=== PATIENT | female | born 1955 | race Caucasian/White ===

== ENCOUNTER 2020-12-01 11:01 | Outpatient (REF) | payer BC, SELFPAY ==
[2020-12-01 11:30] LABS: MANUAL DIFF FLAG NO
[2020-12-01 11:47] LABS: Basophils Percent Auto 0.5 % (0-2); Eosinophils Absolute Auto 0.1 X10*3/uL (0.0-0.4); Eosinophils Percent Auto 1.4 % (0-4); Hematocrit 40.4 % (37-47); Hemoglobin 12.7 g/dl (12.0-16.0); Imm Gran Abs Auto 0.02 X10*3/uL (0.00-0.03); Imm Gran Pct Auto 0.3 % (0.0-0.4); Lymphocytes Absolute Auto 2.7 X10*3/uL (1.2-4.9); Lymphocytes Percent Auto 35.2 % (20-40); Mean Corpuscular HGB Conc 31.4 g/dl (31.0-35.0); Mean Corpuscular Hemoglobin 28.4 pg (27.0-33.0); Mean Corpuscular Volume 90.4 fL (80-98); Mean Platelet Volume 10.3 fL (9.4-12.3); Monocytes Absolute Auto 0.5 X10*3/uL (0.1-1.2); Neutrophils Absolute Auto 4.4 X10*3/uL (2.0-8.3); Neutrophils Percent Auto 56.6 % (45-73); Platelet Count 252 X10*3/uL (160-400); Red Blood Count 4.47 X10*6/uL (4.20-5.50); Red Cell Distribution Width 12.7 % (11.0-16.0); White Blood Count 7.7 X10*3/uL (4.8-10.8)
[2020-12-01 12:17] LABS: Glucose Urine UA NEG (NEG); Leukocyte Esterase Urine NEG (NEG); Nitrite Urine NEG (NEG); PH 5.5 (5.0-8.0); Specific Gravity - Urine >= 1.030 (1.005-1.025); Urine Blood NEG (NEG); Urine Ketones NEG (NEG); Urine Protein NEG (NEG-TRACE)
[2020-12-01 12:18] LABS: Alanine Aminotransferase 19 U/L (0-31); Alkaline Phosphatase 67 U/L (39-117); Anion Gap 15 (12-20); Aspartate Amino Transferase 15 U/L (5-31); Bilirubin Total 0.3 mg/dL (0.0-1.0); Blood Urea Nitrogen 20 mg/dL (9-16); Calcium 8.8 mg/dL (8.4-10.2); Carbon Dioxide 24 mmol/L (22-29); Chloride 108 mmol/L (96-108); Cholesterol 234 mg/dL; Estimated Glomerular Filt Rate > 60; Glucose Fasting 99 mg/dL (60-99); HDL Cholesterol 50 mg/dL; LDL Cholesterol Calculated 144 mg/dl; Potassium 4.3 mmol/L (3.3-5.1); Sodium 143 mmol/L (135-145); Total Protein 6.8 g/dL (6.5-8.0); Triglycerides 204 mg/dL
[2020-12-01 12:22] LABS: Appearance Urine HAZY; Color Urine YELLOW
== END 2020-12-01 11:02 | disposition home or self-care (01) ==
LOC: HO.LNP 11:01
PROVIDERS: PCP Internal Medicine; Visit Provider Internal Medicine
DX: Z00.00 Encounter for general adult medical examination without abnormal findings (principal); I10 Essential (primary) hypertension
CPT/HCPCS: 80053; 80061; 81003; 85025

== ENCOUNTER 2021-04-10 08:21 | Day surgery (SDC) | payer BC, OTHER, MEDICARE, SELFPAY ==
[2021-04-02 13:46] VITALS: BMI 27.8
--- NOTE | 2021-04-09 09:15 | HO.ANESPROP2 ---
Documented by User: Ashley Silverio NP 04/09/21 09:15 HPI - Anesthesia Eval Consult details Narrative: 66yo F for Colonoscopy [facility] Past Medical History Medical History Arthritis HTN (hypertension) Psoriasis Sciatica Urinary incontinence Family History Family History (Updated 04/02/21 @ 13:52 by Ewelina Mancia, JEFERSON) Father Heart disease Mother Heart disease Pacemaker Surgical History Surgical History History of appendectomy History of back surgery History of cervical spinal surgery History of colonoscopy History of hysterectomy Social History Social History Patient Tobacco Use Status: Never used Tobacco Second Hand Smoke Exposure: No Use of substances other than those prescribed or required for medical reasons: No Are you DNR?: No Advance Directives: No Advance Directives Information Provided: No Advance Directives on File: No Meds Allergies Allergy/AdvReac Type Severity Reaction Status Date / Time Penicillins Allergy Intermediate RASH Verified 04/10/21 09:19 oxycodone [From OXYCONTIN] Allergy Mild RASH Verified 04/10/21 09:19 penicillin V Allergy Unknown Rash Verified 04/10/21 09:19 Home Medications Medication Instructions Recorded Confirmed Last Taken Type lisinopril 10 1 tab PO DAILY 04/02/21 04/02/21 Unknown History mg-hydrochlorothiazide 12.5 mg tablet Exam Exam Date and Time: April 09, 2021 0915 Height,Weight and Vital Signs: Height 5 ft 3 in Weight 71.214 kg Assessment and Plan Assessment Anesthesia Assessment: Chart Reviewed Documented by User: Hali Damon MD 04/10/21 09:34 [facility] Past Medical History Medical History Arthritis HTN (hypertension) Psoriasis Sciatica Urinary incontinence Family History Family History (Updated 04/02/21 @ 13:52 by Ewelina Mancia RN) Father Heart disease Mother Heart disease Pacemaker Family history of problems with anesthesia: No Surgical History Surgical History History of appendectomy History of back surgery History of cervical spinal surgery History of colonoscopy History of hysterectomy History of Problems with Anesthesia: No Social History Social History Patient Tobacco Use Status: Never used Tobacco Second Hand Smoke Exposure: No Use of substances other than those prescribed or required for medical reasons: No Are you DNR?: No Advance Directives: No Advance Directives Information Provided: No Advance Directives on File: No Meds Allergies Allergy/AdvReac Type Severity Reaction Status Date / Time Penicillins Allergy Intermediate RASH Verified 04/10/21 09:19 oxycodone [From OXYCONTIN] Allergy Mild RASH Verified 04/10/21 09:19 penicillin V Allergy Unknown Rash Verified 04/10/21 09:19 Home Medications Medication Instructions Recorded Confirmed Last Taken Type lisinopril 10 1 tab PO DAILY 04/02/21 04/02/21 Unknown History mg-hydrochlorothiazide 12.5 mg tablet Exam Airway Mallampati Class: II TM Dist: >3cm Neck ROM: Full Heart: rrr Lungs: cta Assessment and Plan Assessment Anesthesia Assessment: Anesthesia Plan Discussed and Chart Reviewed Final Anesthetic Review Family History of Problems with Anesthesia: No History of Problems with Anesthesia: No NPO: Yes ASA Class: II Final Preanesthetic Review: No Changes in Pt Med Stat and Consent Obtained/Reviewed Patient Risk: Intermediate Procedure Risk: Intermediate Anesthetic Plan Anesthetic Plan: MAC: Disposition: Standard PACU
[2021-04-10 09:21] VITALS: BP 131/78; PULSE 67; RESP 16; TEMP 36.4; O2SAT 97
[2021-04-10] MEDS: Lactated Ringers 1,000 ML 100 ML IVCONT (09:26)
[2021-04-10 10:30] VITALS: BP 95/57; PULSE 65; RESP 16; TEMP 36.7; O2SAT 95
--- NOTE | 2021-04-10 10:33 | PM.OP ---
Brief Operative Note Date of Service: 04/10/21 Pre-op diagnosis: Screening Post-op diagnosis: other (Colon polyp) Procedure: Colonoscopy to the cecum with bx/removal of polyp Surgeon: Pranay Lutz Anesthesia: MAC Was an Traffic Signal Supervisor Maintenance used for this Procedure?: No Estimated blood loss (mL): 3.0 Pathology: other (A. Cecal polyp) Condition: stable Disposition: PACU
[2021-04-10 10:45] VITALS: BP 127/72; PULSE 63; RESP 16; TEMP 36.1; O2SAT 96
--- NOTE | 2021-04-10 20:25 | OP_ITS ---
SURGEON: Pranay Lutz MD INDICATIONS: The patient presents for evaluation of personal history of tubular adenoma of the colon and need for colorectal cancer screening. Full consent has been obtained from her for this, including risks of bleeding and perforation. PREOPERATIVE DIAGNOSIS: Colorectal cancer screening. POSTOPERATIVE DIAGNOSIS: PROCEDURE PERFORMED: Colonoscopy to the cecum with biopsy and removal of polyp. ESTIMATED BLOOD LOSS: COMPLICATIONS: ANESTHESIA: Monitored anesthesia care. ASSISTANTS: SPECIMENS: POSTOPERATIVE DIAGNOSES: Colorectal cancer screening, small colon polyp, diverticulosis, and internal hemorrhoids. DESCRIPTION OF PROCEDURE: The patient was placed in the left lateral decubitus position. The digital rectal exam revealed no abnormalities. The Olympus video pediatric colonoscope was entered into the rectum and advanced easily to the cecum. Once in the cecum, I did identify normal-appearing cecal pouch with appendiceal orifice other than an approximately 4 mm polyp in the cecum, which was biopsied and completely removed with cold biopsy forceps. The remainder of the cecum and ileocecal valve appeared normal. There was transillumination of light deep in the right lower quadrant. The scope was slowly withdrawn assessing all mucosal surfaces carefully. Preparation was excellent. I did not visualize any other polyps, colitis, nor angiodysplasia. There was a mild amount of sigmoid diverticulosis. In the rectum, scope was retroflexed visualizing small internal hemorrhoids, but no other pathology. The rectal mucosa appeared normal. The scope was straightened out and withdrawn from the patient. She tolerated the procedure well and was returned to recovery area in stable condition. IMPRESSION: 1. Small colon polyp, status post biopsy and removal. 2. Diverticulosis. 3. Internal hemorrhoids. PLAN: The results of the biopsy will be checked. I would recommend a repeat colonoscopy in 5 years for further surveillance. MD GIN Celis/JONATHAN / [phone]
== END 2021-04-10 11:36 | disposition home or self-care (01) ==
PROVIDERS: PCP Internal Medicine; Visit Provider Internal Medicine
PROC: 0DJD8ZZ Inspection of Lower Intestinal Tract, Via Natural or Artificial Opening Endoscopic (ICD-10-PCS; CPT 45378; principal; 2021-04-10 09:40)
DX: Z12.11 Encounter for screening for malignant neoplasm of colon (principal); Z86.010 Personal history of colon polyps; D12.0 Benign neoplasm of cecum; K57.30 Diverticulosis of large intestine without perforation or abscess without bleeding; K64.8 Other hemorrhoids; I10 Essential (primary) hypertension; Z79.899 Other long term (current) drug therapy; Z79.1 Long term (current) use of non-steroidal anti-inflammatories (NSAID); Z88.0 Allergy status to penicillin; Z88.8 Allergy status to other drugs, medicaments and biological substances; F17.210 Nicotine dependence, cigarettes, uncomplicated
CPT/HCPCS: 45380; 88305

== ENCOUNTER 2021-07-31 14:27 | Outpatient (REF) | payer MEDICARE, OTHER, SELFPAY ==
--- NOTE | ~2021-07-31 | MM_ITS ---
EXAMINATION: BONE DENSITOMETRY CLINICAL INDICATION: Menopause. COMPARISON: This is the patient's baseline examination. TECHNIQUE: Using a [employer] DXA System (software version: 13.1) manufactured by [employer], dual-energy x-ray absorptiometry was performed of the left hip and left forearm radius 33%. The images are of good technical quality. Summary results are attached. FINDINGS: LEFT FEMUR, NECK: BMD 0.773 g/cm2, Z-score -0.5, T-score -1.9, osteopenia. LEFT FEMUR, TOTAL: BMD 0.834 g/cm2, Z-score -0.3, T-score -1.4, osteopenia. LEFT FOREARM RADIUS 33%: BMD 0.900 g/cm2, Z-score 1.7, T-score 0.3, normal. IDENTIFIED RISK FACTORS: Early menopause, secondary osteoporosis, hysterectomy. HISTORY OF FRACTURE: None listed. MEDICATIONS: Calcium or multivitamin, ERT/SERMS. MM/XR DEXA axial skeleton IMPRESSION: 1. DIAGNOSIS: Osteopenia based on the lowest T-score value of -1.9 in the femoral neck applying World Health Organization criteria. 2. 10-YEAR FRACTURE RISK PREDICTION, FRAX: Major osteoporotic fracture (clinical spine, forearm, hip or shoulder) 10.4%. Hip fracture 1.5%. 3. Treatment Recommendations: NOF guidelines recommend consideration for treatment in postmenopausal women and men age 50 and older presenting with the following: -A hip or vertebral (clinical or morphometric) fracture. -T-score less than or equal to -2.5 at the femoral neck or spine after appropriate evaluation to exclude secondary causes. -Low bone mass at the hip or spine and a 10-year fracture probability by FRAX of greater than or equal to 3% for hip fracture or greater than or equal to 20% for major osteoporotic fracture based on the [place] adapted WHO algorithm. 4. Other Recommendations: All treatment decisions require clinical judgment and consideration of individual patient factors, including patient preferences, comorbidities, previous drug use, risk factors not captured in the FRAX model (e.g. frailty, falls, vitamin D deficiency, increased bone turnover, interval significant decline in bone density) and possible under or overestimation of fracture risk by FRAX. Additional medical evaluation for secondary cause of low bone mineral density may be appropriate. FUTURE SCAN RECOMMENDATION: People with diagnosed cases of osteoporosis or at high risk for fracture should have regular bone mineral density tests. For patients eligible for Medicare, routine testing is allowed once every 2 years. The testing frequency can be increased to one year for patients who have rapidly progressing disease, those who are receiving or discontinuing medical therapy to restore bone mass, or have additional risk factors.
== END 2021-07-31 14:28 | disposition home or self-care (01) ==
LOC: HO.MAMMO 14:27
PROVIDERS: Visit Provider Internal Medicine
DX: Z13.820 Encounter for screening for osteoporosis (principal); Z78.0 Asymptomatic menopausal state; N95.8 Other specified menopausal and perimenopausal disorders; Z90.710 Acquired absence of both cervix and uterus; Z79.899 Other long term (current) drug therapy
CPT/HCPCS: 77080

== ENCOUNTER 2021-12-21 10:37 | Outpatient (REF) | payer MEDICARE, SELFPAY ==
[2021-12-21 10:41] LABS: MANUAL DIFF FLAG NO
[2021-12-21 11:07] LABS: Basophils Absolute Auto 0.1 X10*3/uL (0.0-0.2); Basophils Percent Auto 0.6 % (0-2); Eosinophils Absolute Auto 0.2 X10*3/uL (0.0-0.4); Eosinophils Percent Auto 2.5 % (0-4); Hemoglobin 13.4 g/dl (12.0-16.0); Imm Gran Abs Auto 0.02 X10*3/uL (0.00-0.03); Imm Gran Pct Auto 0.2 % (0.0-0.4); Lymphocytes Absolute Auto 3.5 X10*3/uL (1.2-4.9); Lymphocytes Percent Auto 40.3 % (20-40); Mean Corpuscular HGB Conc 31.9 g/dl (31.0-35.0); Mean Corpuscular Hemoglobin 28.9 pg (27.0-33.0); Mean Corpuscular Volume 90.5 fL (80.0-98.0); Mean Platelet Volume 9.7 fL (9.4-12.3); Monocytes Absolute Auto 0.5 X10*3/uL (0.1-1.2); Monocytes Percent Auto 5.4 % (2-11); Neutrophils Absolute Auto 4.4 x10*3/uL (2.0-8.3); Platelet Count 383 X10*3/uL (160-400); Red Blood Count 4.64 X10*6/uL (4.20-5.50); Red Cell Distribution Width 13.1 % (11.0-16.0); White Blood Count 8.6 X10*3/uL (4.8-10.8)
[2021-12-21 11:13] LABS: Appearance Urine HAZY; Color Urine YELLOW; Glucose Urine UA NEG (NEG); Leukocyte Esterase Urine NEG (NEG); Nitrite Urine NEG (NEG); PH 5.5 (5.0-8.0); Specific Gravity - Urine >= 1.030 (1.005-1.025); Urine Blood NEG (NEG); Urine Ketones NEG (NEG); Urine Protein NEG (NEG-TRACE)
[2021-12-21 11:24] LABS: Alanine Aminotransferase 21 U/L (0-31); Albumin Level 4.2 g/dL (3.5-5.0); Alkaline Phosphatase 79 U/L (39-117); Anion Gap 11 (12-20); Aspartate Amino Transferase 17 U/L (5-31); Bilirubin Total 0.4 mg/dL (0.0-1.0); Blood Urea Nitrogen 27 mg/dL (9-16); Calcium 10.1 mg/dL (8.4-10.2); Carbon Dioxide 27 mmol/L (22-29); Chloride 107 mmol/L (96-108); Cholesterol 236 mg/dL; Estimated Glomerular Filt Rate > 60; Glucose Fasting 102 mg/dL (60-99); HDL Cholesterol 50 mg/dL; LDL Cholesterol Calculated 155 mg/dl; Potassium 4.7 mmol/L (3.3-5.1); Sodium 140 mmol/L (135-145); Total Protein 7.2 g/dL (6.5-8.0); Triglycerides 157 mg/dL
== END 2021-12-21 10:38 | disposition home or self-care (01) ==
LOC: HO.LNP 10:37
PROVIDERS: PCP Internal Medicine; Visit Provider Internal Medicine
DX: Z00.00 Encounter for general adult medical examination without abnormal findings (principal); I10 Essential (primary) hypertension
CPT/HCPCS: 80053; 80061; 81003; 85025

== ENCOUNTER 2022-04-02 13:11 | Outpatient (REF) | payer MEDICARE, SELFPAY ==
[2022-04-02 13:44] LABS: Blood Urea Nitrogen 20 mg/dL (9-16); Estimated Glomerular Filt Rate > 60
== END 2022-04-02 13:12 | disposition home or self-care (01) ==
LOC: HO.LNP 13:11
PROVIDERS: Visit Provider Internal Medicine
DX: I10 Essential (primary) hypertension (principal)
CPT/HCPCS: 82565; 84520

== ENCOUNTER 2022-07-20 16:04 | Outpatient (REF) | payer MEDICARE, SELFPAY ==
[2022-07-20 16:08] LABS: MANUAL DIFF FLAG NO
[2022-07-20 16:17] LABS: Basophils Absolute Auto 0.1 X10*3/uL (0.0-0.2); Basophils Percent Auto 0.8 % (0-2); Eosinophils Absolute Auto 0.1 X10*3/uL (0.0-0.4); Hematocrit 41.1 % (37.0-47.0); Hemoglobin 13.5 g/dl (12.0-16.0); Imm Gran Abs Auto 0.03 X10*3/uL (0.00-0.03); Imm Gran Pct Auto 0.3 % (0.0-0.4); Lymphocytes Percent Auto 37.8 % (20-40); Mean Corpuscular HGB Conc 32.8 g/dl (31.0-35.0); Mean Corpuscular Hemoglobin 28.8 pg (27.0-33.0); Mean Corpuscular Volume 87.8 fL (80.0-98.0); Mean Platelet Volume 9.7 fL (9.4-12.3); Monocytes Absolute Auto 0.5 X10*3/uL (0.1-1.2); Monocytes Percent Auto 4.3 % (2-11); Neutrophils Absolute Auto 5.8 x10*3/uL (2.0-8.3); Neutrophils Percent Auto 55.8 % (45-73); Platelet Count 359 X10*3/uL (160-400); Red Blood Count 4.68 X10*6/uL (4.20-5.50); Red Cell Distribution Width 12.7 % (11.0-16.0); White Blood Count 10.5 X10*3/uL (4.8-10.8)
[2022-07-20 16:23] LABS: Anion Gap 13 (12-20); Carbon Dioxide 28 mmol/L (22-29); Chloride 99 mmol/L (96-108); Potassium 4.2 mmol/L (3.3-5.1); Sodium 136 mmol/L (135-145)
== END 2022-07-20 16:05 | disposition home or self-care (01) ==
LOC: HO.LNP 16:04
PROVIDERS: Visit Provider Internal Medicine
DX: Z01.818 Encounter for other preprocedural examination (principal)
CPT/HCPCS: 80051; 85025

== ENCOUNTER 2022-11-23 11:01 | Outpatient (REF) | payer MEDICARE, SELFPAY ==
--- NOTE | ~2022-11-23 | MM_ITS ---
EXAMINATION: MM SCREENING DIGITAL BREAST TOMOSYNTHESIS, BILATERAL CLINICAL INFORMATION: Screening. Asymptomatic. The lifetime risk of breast cancer based on the Tyrer-Cuzick Model is 6%. COMPARISON: Outside mammography: 11/06/2021, 11/07/2020, 11/01/2020, 10/27/2019 ([facility]) TECHNIQUE: Digital breast tomosynthesis is performed in both the craniocaudal and mediolateral oblique views along with computer-aided detection (CAD). Synthesized 2D images are generated from the tomosynthesis. FINDINGS: There are scattered areas of fibroglandular density (ACR BI-RADS breast composition Category b). There are no significant masses, abnormal calcifications, or other abnormalities. Parenchymal pattern is similar to prior outside studies. No architectural abnormality. No developing density. No axillary adenopathy. MM/MM tomosynthesis screening BI IMPRESSION: No mammographic evidence of malignancy. ASSESSMENT: BI-RADS 1: Negative RECOMMENDATION: Routine annual mammography screening. This patient's information was entered into a reminder system with a target due date for their next mammogram.
== END 2022-11-23 11:02 | disposition home or self-care (01) ==
LOC: HO.MAMMO 11:01
PROVIDERS: PCP Internal Medicine; Visit Provider Obstetrics & Gynecology Female Pelvic Medicine and Reconstructive Surgery
DX: Z12.31 Encounter for screening mammogram for malignant neoplasm of breast (principal)
CPT/HCPCS: 77063; 77067

== ENCOUNTER 2022-12-23 10:35 | Outpatient (REF) | payer MEDICARE, SELFPAY ==
[2022-12-23 10:38] LABS: MANUAL DIFF FLAG NO
[2022-12-23 10:47] LABS: Basophils Absolute Auto 0.1 X10*3/uL (0.0-0.2); Basophils Percent Auto 0.8 % (0-2); Eosinophils Absolute Auto 0.2 X10*3/uL (0.0-0.4); Eosinophils Percent Auto 2.6 % (0-4); Hematocrit 38.9 % (37.0-47.0); Hemoglobin 12.6 g/dl (12.0-16.0); Imm Gran Abs Auto 0.03 X10*3/uL (0.00-0.03); Imm Gran Pct Auto 0.3 % (0.0-0.4); Lymphocytes Absolute Auto 3.6 X10*3/uL (1.2-4.9); Lymphocytes Percent Auto 39.3 % (20-40); Mean Corpuscular HGB Conc 32.4 g/dl (31.0-35.0); Mean Corpuscular Volume 89.6 fL (80.0-98.0); Mean Platelet Volume 10.1 fL (9.4-12.3); Monocytes Absolute Auto 0.5 X10*3/uL (0.1-1.2); Monocytes Percent Auto 5.4 % (2-11); Neutrophils Absolute Auto 4.8 x10*3/uL (2.0-8.3); Neutrophils Percent Auto 51.6 % (45-73); Platelet Count 326 X10*3/uL (160-400); Red Blood Count 4.34 X10*6/uL (4.20-5.50); White Blood Count 9.2 X10*3/uL (4.8-10.8)
[2022-12-23 10:49] LABS: Appearance Urine Cloudy; Color Urine Yellow; Glucose Urine UA Negative (Negative); Leukocyte Esterase Urine Negative (Negative); Nitrite Urine Negative (Negative); Specific Gravity - Urine 1.025 (1.005-1.025); Urine Blood Negative (Negative); Urine Ketones Negative (Negative); Urine Protein Negative (Neg-Trace)
[2022-12-23 11:06] LABS: Alanine Aminotransferase 18 U/L (0-31); Albumin Level 4.1 g/dL (3.5-5.0); Alkaline Phosphatase 64 U/L (39-117); Anion Gap 13 (12-20); Aspartate Amino Transferase 16 U/L (5-31); Bilirubin Total 0.6 mg/dL (0.0-1.0); Blood Urea Nitrogen 19 mg/dL (9-16); Calcium 9.1 mg/dL (8.4-10.2); Carbon Dioxide 26 mmol/L (22-29); Chloride 104 mmol/L (96-108); Cholesterol 236 mg/dL; Estimated Glomerular Filt Rate > 60; Glucose Fasting 89 mg/dL (60-99); HDL Cholesterol 55 mg/dL; LDL Cholesterol Calculated 149 mg/dl; Potassium 4.3 mmol/L (3.3-5.1); Sodium 139 mmol/L (135-145); Total Protein 6.8 g/dL (6.5-8.0); Triglycerides 164 mg/dL
[2022-12-23 11:11] LABS: Bacteria Urine 2+ (None Seen); Hyaline Casts Urine 0-2 /LPF (0-2); UACC Culture Trigger YES
== END 2022-12-23 10:36 | disposition home or self-care (01) ==
LOC: HO.LNP 10:35
PROVIDERS: PCP Internal Medicine; Visit Provider Internal Medicine
DX: Z00.00 Encounter for general adult medical examination without abnormal findings (principal); I10 Essential (primary) hypertension; R82.90 Unspecified abnormal findings in urine
CPT/HCPCS: 80053; 80061; 81001; 85025; 87086; 87088; 87186

== ENCOUNTER 2023-01-20 11:02 | Outpatient (REF) | payer MEDICARE, SELFPAY ==
[2023-01-20 11:30] LABS: Appearance Urine Clear; Color Urine Yellow; Glucose Urine UA Negative (Negative); Leukocyte Esterase Urine Negative (Negative); Nitrite Urine Negative (Negative); PH 5.5 (5.0-9.0); Specific Gravity - Urine >= 1.030 (1.005-1.025); Urine Blood Negative (Negative); Urine Ketones Negative (Negative); Urine Protein Negative (Neg-Trace)
[2023-01-20 11:49] LABS: Bacteria Urine None Seen (None Seen); Hyaline Casts Urine 0-2 /LPF (0-2); Other Crystals Urine Present; WBC Urine 0-5 /HPF (0-5)
== END 2023-01-20 11:03 | disposition home or self-care (01) ==
LOC: HO.LNP 11:02
PROVIDERS: Visit Provider Internal Medicine
DX: R31.9 Hematuria, unspecified (principal)
CPT/HCPCS: 81001

== ENCOUNTER 2023-11-28 15:53 | Outpatient (REF) | payer OTHER, SELFPAY | END 2023-11-28 15:54 | disposition home or self-care (01) | LOC: HO.MAMMO 15:53 | PROVIDERS: PCP Internal Medicine; Referring Provider Obstetrics & Gynecology Female Pelvic Medicine and Reconstructive Surgery; Visit Provider Internal Medicine | DX: Z12.31 Encounter for screening mammogram for malignant neoplasm of breast (principal) | CPT/HCPCS: 77063; 77067 ==

== ENCOUNTER → 2023-11-28 16:15 | Outpatient (BNV) | payer OTHER, SELFPAY | PROVIDERS: PCP Internal Medicine; Referring Provider Obstetrics & Gynecology Female Pelvic Medicine and Reconstructive Surgery; Visit Provider Radiology Diagnostic Radiology | DX: Z12.31 Encounter for screening mammogram for malignant neoplasm of breast (principal) | CPT/HCPCS: 77063; 77067 ==

== ENCOUNTER 2024-02-17 10:08 | Outpatient (REF) | payer MEDICARE, SELFPAY ==
[2024-02-17 10:11] LABS: MANUAL DIFF FLAG NO
[2024-02-17 10:16] LABS: Basophils Absolute Auto 0.1 X10*3/uL (0.0-0.2); Basophils Percent Auto 0.7 % (0-2); Eosinophils Absolute Auto 0.2 X10*3/uL (0.0-0.4); Eosinophils Percent Auto 1.8 % (0-4); Hematocrit 38.6 % (37.0-47.0); Hemoglobin 12.7 g/dl (12.0-16.0); Imm Gran Abs Auto 0.02 X10*3/uL (0.00-0.03); Imm Gran Pct Auto 0.2 % (0.0-0.4); Lymphocytes Absolute Auto 3.1 X10*3/uL (1.2-4.9); Lymphocytes Percent Auto 34.8 % (20-40); Mean Corpuscular HGB Conc 32.9 g/dl (31.0-35.0); Mean Corpuscular Hemoglobin 29.7 pg (27.0-33.0); Mean Corpuscular Volume 90.4 fL (80.0-98.0); Mean Platelet Volume 9.8 fL (9.4-12.3); Monocytes Absolute Auto 0.5 X10*3/uL (0.1-1.2); Monocytes Percent Auto 5.9 % (2-11); Neutrophils Absolute Auto 5.1 x10*3/uL (2.0-8.3); Neutrophils Percent Auto 56.6 % (45-73); Platelet Count 344 X10*3/uL (160-400); Red Blood Count 4.27 X10*6/uL (4.20-5.50); Red Cell Distribution Width 13.7 % (11.0-16.0); White Blood Count 8.9 X10*3/uL (4.8-10.8)
[2024-02-17 10:29] LABS: Appearance Urine Turbid; Color Urine Yellow; Glucose Urine UA Negative (Negative); Leukocyte Esterase Urine Small (1+) (Negative); Nitrite Urine Negative (Negative); PH 5.5 (5.0-9.0); UMIC TRIGGER UACC YES; Urine Blood Negative (Negative); Urine Ketones Negative (Negative); Urine Protein Negative (Neg-Trace)
[2024-02-17 10:43] LABS: Bacteria Urine Trace (None Seen); Hyaline Casts Urine 0-2 /LPF (0-2); Other Crystals Urine Present; RBC Urine 0-2 /HPF (0-2); UACC Culture Trigger YES; WBC Urine 0-5 /HPF (0-5)
[2024-02-17 11:00] LABS: Alanine Aminotransferase 15 U/L (0-31); Alkaline Phosphatase 61 U/L (39-117); Anion Gap 11 (12-20); Aspartate Amino Transferase 14 U/L (5-31); Bilirubin Total 0.5 mg/dL (0.0-1.0); Blood Urea Nitrogen 20 mg/dL (9-16); Carbon Dioxide 29 mmol/L (22-29); Chloride 104 mmol/L (96-108); Cholesterol 240 mg/dL (<200); Estimated Glomerular Filt Rate > 60; Glucose Fasting 84 mg/dL (60-99); HDL Cholesterol 68 mg/dL (>40); LDL Cholesterol Calculated 149 mg/dL (<100); Potassium 4.3 mmol/L (3.3-5.1); Sodium 140 mmol/L (135-145); Total Protein 7.2 g/dL (6.5-8.0); Triglycerides 119 mg/dL (<150)
== END 2024-02-17 10:09 | disposition home or self-care (01) ==
LOC: HO.LNP 10:08
PROVIDERS: Visit Provider Internal Medicine
DX: Z00.00 Encounter for general adult medical examination without abnormal findings (principal); I10 Essential (primary) hypertension; R82.79 Other abnormal findings on microbiological examination of urine
CPT/HCPCS: 80053; 80061; 81001; 85025; 87086; 87088; 87186

== ENCOUNTER 2024-02-21 12:03 | Outpatient (REF) | payer MEDICARE, SELFPAY ==
[2024-02-21 12:51] LABS: Appearance Urine Clear; Color Urine Yellow; Glucose Urine UA Negative (Negative); Leukocyte Esterase Urine Negative (Negative); Nitrite Urine Negative (Negative); PH 5.5 (5.0-9.0); Urine Blood Negative (Negative); Urine Ketones Negative (Negative); Urine Protein Negative (Neg-Trace)
[2024-02-21 13:46] LABS: Bacteria Urine None Seen (None Seen); Hyaline Casts Urine 0-2 /LPF (0-2); Other Crystals Urine Present; RBC Urine 0-2 /HPF (0-2); Squamous Epithelial Cell Urine 0-2 /HPF (0-2); WBC Urine 0-5 /HPF (0-5)
== END 2024-02-21 12:04 | disposition home or self-care (01) ==
LOC: HO.LNP 12:03
PROVIDERS: Visit Provider Internal Medicine
DX: N39.0 Urinary tract infection, site not specified (principal)
CPT/HCPCS: 81001

== ENCOUNTER 2024-03-06 13:13 | Outpatient (REF) | payer MEDICARE, SELFPAY | END 2024-03-06 13:14 | disposition home or self-care (01) | LOC: HO.LNP 13:13 | PROVIDERS: Visit Provider Internal Medicine | DX: N39.0 Urinary tract infection, site not specified (principal) | CPT/HCPCS: 87086; 87088; 87186 ==

== ENCOUNTER 2024-03-15 11:47 | Outpatient (REF) | payer MEDICARE, SELFPAY ==
[2024-03-15 11:59] LABS: Appearance Urine Cloudy; Color Urine Yellow; Glucose Urine UA Negative (Negative); Leukocyte Esterase Urine Negative (Negative); Nitrite Urine Negative (Negative); Specific Gravity - Urine 1.015 (1.005-1.025); UMIC TRIGGER UACC YES; Urine Blood Moderate (2+) (Negative); Urine Ketones Negative (Negative); Urine Protein Negative (Neg-Trace)
[2024-03-15 12:13] LABS: Bacteria Urine 2+ (None Seen); Hyaline Casts Urine 0-2 /LPF (0-2); RBC Urine >20 /HPF (0-2); WBC Urine 0-5 /HPF (0-5)
== END 2024-03-15 11:48 | disposition home or self-care (01) ==
LOC: HO.LNP 11:47
PROVIDERS: Visit Provider Internal Medicine
DX: Z51.89 Encounter for other specified aftercare (principal)
CPT/HCPCS: 81001

== ENCOUNTER 2024-09-06 08:48 | Outpatient (REF) | payer MEDICARE, SELFPAY ==
[2024-09-06 09:18] LABS: MANUAL DIFF FLAG NO
--- OUTSIDE RECORDS SUMMARY | 2024-09-06 09:21 | XMS_ITS | Data Portability ---
Author Organization [facility] Paulo Vincent AONE Bells Address [address] [place] [address] Care Team Providers Care Pest Control Technician Name Role Phone ANAHI PERSON Referring Provider Assessment Encounter Date Assessment Date Assessment LastModified by Organization Details LastModified Time 04/01/2023 04/01/2023 HPI : ? Thank you for the pleasure of requesting a consultation on this patient. Patient comes in complaining of left hip pain. She has been dealing with the hip pain for about 8 months. The pain is severe. She has a history of lumbar fusion surgeries the last 1 in 2014. She has a spinal cord stimulator. She does smoke 2 to 3 cigarettes/day. ? This patient is experiencing left hip pain for a period lasting greater than the last three months, which is severe (VAS score greater than or equal to 6 on a 0-10 scale) in intensity and the restriction of function (appropriate for a patient of this age) are intolerable. The pain substantially limits activities of daily living. In particular, walking tolerance and ability to stair climb is reduced. Conservative management such as non-steroidal anti-inflammatory medications available by prescription, physician directed therapy, ice and/or heat and activity modification have been minimally effective or deemed insufficient by the patient for a period lasting greater than 3-6 months in duration. Assistive devices and external support were not deemed by the patient to be helpful in improving their function. The patient is unable to tolerate further physical therapy at this time. Review of systems is negative for rapidly progressive neurological disorder, chest pain, shortness of breath, fevers, chills, or any signs of active or persistent local or systemic infection. Physical Exam : Patient is well nourished, well-developed, in no acute distress, with appropriate mood and affect. The patient is oriented to time, place, and person. Respirations are even and unlabored. Gait evaluation reveals a limp. There is no inguinal adenopathy. Examination of the contralateral hip shows normal range of motion, strength, no tenderness, and intact skin. The affected limb is well-perfused, shows a grossly normal motor and sensory examination. Examination of the hip shows no skin lesions. Hip motion is reduced and causes pain. FADIR is positive and MARY is positive. Stinchfield test is positive. Leg lengths are approximately left less than right by 5 mm. Both hips are stable and muscle strength is normal. Pedal pulses are palpable. Radiographs of the left hip from January 2023 demonstrate degenerative joint disease with joint space narrowing, osteophyte formation, and subchondral sclerosis. There is bewe-rr-jlfi articulation in the hip. Assessment/Plan : The patient is an appropriate candidate for consideration of left total hip replacement. An extensive discussion was conducted of the natural history of the disease and the variety of surgical and non-surgical treatment options available to the patient. A risk/benefit analysis was discussed with the patient reviewing the advantages and disadvantages of surgical intervention at this time. A full explanation was given of the nature and the purpose of the procedure and anesthesia, its benefits, possible alternative methods of diagnosis or treatment, the risks involved, the possibility of complications, the foreseeable consequences of the procedure and the possible results of the non-treatment. No guarantee or assurance was made as to the results that may be obtained. Specifically, the risks were identified to include, but are not limited to the following: Infection, phlebitis, pulmonary embolism, , paralysis, dislocation, pain, stiffness, instability, limp, weakness, breakage, leg-length inequality, uncontrolled bleeding, nerve injury, blood vessel injury, pressure sores, anesthetic risks, delayed healing of wound and bone, and wear and loosening. Additional risks of robotic hip replacement were discussed (if used) including but not limited to pin site infection, draining, longer incision, longer OR time, and fracture near the pin sites. Further discussion was undertaken with the patient about the details of surgical preparation, treatment, and postoperative rehabilitation including medical clearance, autotransfusion, the hospital course, and the postoperative rehabilitation involved. As a part of routine preoperative counseling, if the patient is a smoker, the patient recognizes the increased risk of complications in patients who utilize tobacco products. The patient has also been counseled regarding the elevated risk of surgical complications in patients with an elevated BMI. The patient demonstrates understanding of the increased risk in such patients. The patient was encouraged to participate in physical activity and diet modification under the direction of their primary care physician. We will plan on proceeding with left total hip arthroplasty using the [place] hip replacement system. However, it is possible during the preoperative planning process or due to intraoperative findings that a different implant system may be utilized in order to optimize the patient's outcome. We had a discussion regarding implant and bearing options. We had a detailed discussion of the advantages and limitations of the specific implant designs, materials and bearing surfaces. All questions were answered to the patient's satisfaction, and the patient was asked to call the office with any further concerns. All in all, I feel that this patient is a good candidate for surgical reconstruction. Plan for left total hip replacement, robotic assisted, on May 19, 2023 at [facility]. Not available 04/01/2023 12:06:36 06/02/2023 06/02/2023 Assessment/Plan : The patient is functioning well 2 weeks from total hip arthroplasty. Continue anticoagulation therapy for 2 weeks. The patient will begin physical therapy, prescription given.. Return for follow-up in 1 month. [email or web address] Not available 06/02/2023 11:02:34 07/01/2023 07/01/2023 HPI : Patient is here for a 6 week follow-up from a left MICKIE. She is recovering very well. She reports no pain. She reports good function. She is very happy with her results and progress. Physical Exam : Patient is well nourished, well- developed, in no acute distress, with appropriate mood and affect. The patient is AAOx3. The patient demonstrates good hip motion and strength. The incision is well healing. Assessment/Plan : The patient is functioning well 6 weeks from total hip arthroplasty. Continue physical therapy as needed. Return for follow-up in 2 months with x-rays at that time. Not available 07/01/2023 13:29:19 09/02/2023 09/02/2023 HPI : ? Patient is here for 3 month(s) follow-up for a LEFT total hip replacement.? ? she has recovered very well. She has minimal to no pain. She has good function. She has good strength. She is back to work. She is very happy with her progress. Just some mild lateral sided numbness. Still some mild strength deficits that are improving. Overall, patient reports good pain relief in the hip and satisfactory jehovah's witness of function in terms of activities of daily living. Physical Exam : Patient is well nourished, well-developed, in no acute distress, with appropriate mood and affect. The patient is oriented to time, place, and person. Respirations are even and unlabored. There is no inguinal adenopathy. Examination of the contralateral hip shows normal range of motion, strength, no tenderness, and intact skin. The operative limb is well-perfused, with well healed skin incision. The patient demonstrates good hip motion, stability, and strength. There is no pain with ROM Muscle strength is normal. Pedal pulses are palpable. Assessment/Plan : This patient is functioning well after LEFT total hip arthroplasty. Continue to work on hip conditioning exercises. Yzcx-ycy-esojupx medications as needed. Ultimate failure may occur due to mechanical wear, loosening or breakage. Follow-up is recommended to assess for the possibility of failure. Plan for follow-up at 1 year from surgery with repeat x-rays of the left hip at that time. Not available 09/02/2023 10:36:03 05/31/2024 05/31/2024 HPI : ? Patient is here for 1 year follow-up for left total hip replacement.? ? Patient reports good pain relief in the hip and satisfactory jehovah's witness of function in terms of activities of daily living. Their condition is improved relative to their pre-operative condition. She is very pleased with the long-term results of her left-sided total hip arthroplasty. She reports that the hip is pain-free and high functioning. She has not had any problems since her last visit to this office and does not have any complaints or concerns. Physical Exam : Patient is well nourished, well-developed, in no acute distress, with appropriate mood and affect. The patient is oriented to time, place, and person. There is no inguinal adenopathy. The operative limb is well-perfused, with well healed skin incision. The patient demonstrates good hip motion, stability, and strength. There is no pain with ROM Muscle strength is normal. Distal NVMS checks are intact. X-Ray: 4 view x-ray study of left hip obtained during today's office encounter does not show any signs of implant related issues including loosening, malposition, instability, periprosthetic fracture, periosteal reaction or infection. Assessment/Plan : This patient is functioning well after total hip arthroplasty. Continue to work on hip conditioning exercises. Zxeb-gzx-iqyfebg medications as needed. The patient understands that ultimate failure may occur due to mechanical wear, loosening or breakage. Follow-up at five year post-op is recommended to assess for the possibility of failure. Follow up sooner with any problems. At least 25 minutes were spent reviewing previous charting and radiographs, obtaining history and physical exam, and reviewing treatment plan. This patient was seen and evaluated by Aaron Lyman MS, PA-C in indirect conjunction with documenting/superv ising provider Fady Pool MD. He agrees with history, physical examination, tests/diagnostic imaging, and treatment plan. [email or web address] Not available 05/31/2024 09:18:18 Plan of Treatment Reminders Order Date Submit Date Provider Last Modified By Organization Details Last Modified Time Details Appointments None recorded. Lab None recorded. Referral orthopedic physical therapist referral - Other Comments: 2022 023 [email or web address] Not available 11:01:16 Procedures None recorded. Surgeries total hip arthroplast y (SURG) 2022 023 [facility], [address] [place] [address], [address], 3 09:54:13 Imaging XR, hip, unilateral, 2 or 3 view 2023 024 [facility], [address], [address], [place], [address], 4 10:50:20 XR, hip, unilateral, 2 or 3 view 2023 024 [email or web address] [facility], [address], [address], [place], [address], 4 09:26:39 Medication Orders None recorded. Patient TargetsNo targets recorded. Patient Instructions Encounter Date Encounter Id Patient Instructions Last Modified By Organization Details Last Modified Time 09/02/2023 [id number] AP pelvis, AP an d lateral radiographs of the left hip taken today demonstrate a left total hip replacement with components in appropriate position without any signs of hardware related complication. Not available 09/02/2023 10:36:12 Reason for Referral Other Comments: Referring Physician: Wander Mendenhall, Orthopedic Surgery, Encounter Date: 06/02/2023 Results Created Date Observation Date Name Description Value Unit Range Abnormal Flag Note LastModifiedBy Organization Detail LastModifiedTime 04/20/2004/20/2023 CT, pelvi s, w/o contr ast No observ ation record ed. [email or web address] [facility] [address] , [place], [address], 04/21/2023 08:28:52 04/20/2004/20/2023 XR, pelvi s, 1 or 2 view No observ ation record ed. [email or web address] [facility] ([facility] [address] , [place], [address], 04/21/2023 08:39:18 Result Notes None recorded. Problems Name Problem SNOMED Code Status Onset Date Resolution Date Notes Provider Name and Address Organization Details Recorded Time Osteoarthri tis of left hip joint 0238416995335 08 Active 2022 AARON CRYSTAL PA-C [address] [facility],[address], [place], [address], [place] [facility] 3 08:04:53 Arthritis of hip 38711610 Active 2022 Fady Pool MD [address] [facility],[address], [facility] [place], [address], [place] [facility] 3 12:06:17 Problem Notes None recorded. Procedures Surgical History Date Name Laterality Status Provider Name and Address Organization Details Recorded Time TOTAL HIP ARTHROPLASTY (SURG) completed Nida Juárez [facility] 06/06/2023 09:54:22 Imaging Results Imaging Date Name Status LastModified by Organiz ation Details LastModified Time 04/20/2023 CT, pelvis, w/o contrast completed [email or web address] [address], [place], [address], 04/21/2023 08:28:52 04/20/2023 XR, pelvis, 1 or 2 view completed [email or web address] [facility] [address], [place], [address], 04/21/2023 08:39:18 Procedure Notes None recorded. Medical Equipment None Reported. Allergies Allergen ID Allergen Name Allergen Category Reaction Reaction Severity Criticality Documentation Date Start Date Code Code System Note Provider Name and Address Organization Details Recorded Time 5257 oxycodone medicatio n itching Not available Not available 02/07/2023 7804 RxNorm Maria Luisa Hidalgo [facility], [place] - [facility] 3 13:39:16 5258 Medicinal product containin g penicilli n and acting as antibacte rial agent (product) medicatio n rash Not available Not available 02/07/2023 94122 05 SNOMED Maria Luisa Hidalgo null, [place] [facility] 3 13:39:38 5259 amlodipin e medicatio n hives Not available Not available 02/07/2023 58706 RxNorm Maria Luisa Hidalgo null, [place] [facility] 3 13:40:07 Medications Name Sig Start Date Stop Date Status Note LastModified by Organization Details LastModified Time ibuprofen 800 mg tablet TAKE 1 TABLET BY MOUTH THREE TIMES DAILY NEEDED FOR PAIN 06/13 completed Not Available Not Available Not Available meloxicam 15 mg tablet 09/01 completed Not Available Not Available Not Available fluorouraci l 5 % topical cream active Not Available Not Available Not Available levofloxaci n 250 mg tablet TAKE 1 TABLET BY MOUTH EVERY DAY FOR 5 DAYS 02/07 completed Not Available Not Available Not Available tramadol 50 mg tablet 09/01 completed Not Available Not Available Not Available ondansetron 8 mg disintegrat ing tablet 09/01 completed Not Available Not Available Not Available cefadroxil 500 mg capsule TAKE 2 CAPSULES BY MOUTH TWICE DAILY active Not Available Not Available No t Available oxycodone-a cetaminophe n 5 mg-325 mg tablet TAKE 1 TABLET BY MOUTH EVERY 4 HOURS WHILE AWAKE NEEDED FOR PAIN active Not Available Not Available No t Available methocarbam ol 750 mg tablet 09/01 completed Not Available Not Available Not Available estradiol 1 mg tablet TAKE 1 TABLET BY MOUTH EVERY DAY active Not Available Not Available No t Available pantoprazol e 40 mg tablet,aly yed release 09/01 completed Not Available Not Available Not Available halobetasol propionate 0.05 % topical ointment APPLY TO TO THE AFFECTED AREA TWICE DAILY OF PSORIASIS ON HANDS AND FEET DAILY active Not Available Not Available No t Available diclofenac sodium 75 mg tablet,aly yed release 75 mg every day by oral route. 2023 active Not Available Not Available Not Avai lable lisinopril 10 mg-hydrochl orothiazide 12.5 mg tablet TAKE 1 TABLET BY MOUTH EVERY DAY FOR 90 DAYS active Not Available Not Available No t Available Vitals Date Recorded Body height Body mass index (BMI) Body weight Provider Name and Address Organization Details Last Updated DateTime 07/01/2023 157.48 cm 27.8 kg/m2 99095.[address] [place] [facility] 07/01/2023 13:20:44 Date Recorded Body height Body mass index (BMI) Body weight Provider Name and Address Organization Details Last Updated DateTime 09/02/2023 157.48 cm 27.8 kg/m2 [address].[address] [place] [facility] 09/02/2023 10:24:11 Date Recorded Body height Body mass index (BMI) Body weight Provider Name and Address Organization Details Last Updated DateTime 05/31/2024 157.48 cm 27.8 kg/m2 12938.[address] [place] [facility] 05/31/2024 08:51:54 Date Recorded Body height Body mass index (BMI) Body weight Provider Name and Address Organization Details Last Updated DateTime 04/01/2023 157.48 cm 27.8 kg/m2 36061.[address] [place] [facility] 04/01/2023 11:25:42 Social History Question Answer Notes LastModified by Organizat ion Details LastModified Time Tobacco Smoking Status Never Smoker Maria Luisa troncoso, [place] [facility] 02/07/2023 13:40:50 What Is Your Level Of Alcohol Consumption? None Information not available 02/07/2023 Do You Use Any Illicit Or Recreational Drugs? No Information not available 02/07/2023 Do You Or Have You Ever Used Any Other Forms Of Tobacco Or Nicotine? No Information not available 02/07/2023 Sex: Unknown Functional Status None recorded. Mental Status None recorded. Family History Nothing Reported. Medical History Condition Response Hypertension Y Gynecological HistoryNo gynecological history recorded. Obstetrics History GPAL:G 0 P 0 0 0 0 Past Encounters Encounter ID Performer Location Encounter Start Date Encounter Closed Date Diagnosis/Indication Diagnosis SNOMED-CT Code Diagnosis ICD10 Code Diagnosis Note [id number] MD ROMANA Lozoya [address] [address] 02/07/2023 12:56:24 02/07/2023 14:09:18 Pain of left hip joint 5595464660 42484 M25.552 Osteoarthr itis of left hip joint 4660033101 49090 M16.12 [id number] MD ROMANA Lozoya [address] [address] 04/01/2023 11:11:30 04/01/2023 11:50:17 Osteoarthritis of left hip joint 6959442702 93838 M16.12 Arthritis of hip 1236000 6 M13.859 [id number] MD ROMANA Lozoya [address] [address] 06/02/2023 10:32:21 06/02/2023 10:59:12 Postoperative care 836480342 Z48.89 History of total replacement of left hip joint 3372043110 488502 Z96.642 [id number] MD ROMANA Lozoya [address] [address] 07/01/2023 13:19:20 07/01/2023 13:50:12 Aftercare 708697357 Z47.1 History of total replacement of left hip joint 1604932453 021733 Z96.642 [id number] MD ROMANA Lozoya [facility] [address] [facility] [address] [place] [address] 09/02/2023 10:13:54 09/02/2023 10:37:42 History of total replacement of left hip joint 5220990083 051913 Z96.642 Aftercare 749963295 Z47. 1 [id number] MD ROMANA Lozoya [facility] [address] [facility] [address] [place] [address] 05/31/2024 08:40:10 05/31/2024 09:17:08 History of repair of hip joint 510303417 Z96.642 Health Concerns Section Related Observation LastModified by Organization Detai ls LastModified Time None Recorded Concern Status LastModified by Organization Details LastModified Time None Recorded Advance Directives Directive None Recorded Payers Encounter Date Sequence Insurance Name Policy Number Policy Chairez Covered Member ID Chairez Member ID Guarantor Name 04/01/2023 1 [facility] (MEDICARE REPLACEMENT/A DVANTAGE - PPO) [id number] Zamzam HammerReba [id number] Zamzam HammerReba 06/02/2023 1 [facility] (MEDICARE REPLACEMENT/A DVANTAGE - PPO) [id number] Zamzam HammerReba [id number] Zamzam HammerReba 07/01/2023 1 [facility] (MEDICARE REPLACEMENT/A DVANTAGE - PPO) [id number] Zamzam HammerReba [id number] Zamzam Reba 09/02/2023 1 [facility] (MEDICARE REPLACEMENT/A DVANTAGE - HMO) [id number] Zamzam Alanisexter [id number] Zamzam Reba 05/31/2024 1 [employer] (MEDICARE REPLACEMENT PPO) [id number] Zamzam Alanisexter [id number] Zamzam Alanisexter Notes Date Note Type Note Provider Name and Address Organization Details Recorded Time 06/02/2023 text/html HPI: Patient is here for a 2 week follow-up from a {{left* right bila teral}} MICKIE. She reports no significant discomfort. She has stopped her pain medications. She has been doing some walking. She has not started physical therapy yet. She has the force lili, but states at times she has difficulty getting into it. Physical Exam: Patient is well nourished, well- developed, in no acute distress, with appropriate mood and affect. The patient is AAOx3. The patient demonstrates good hip motion and strength. The incision is c/d/i. WANDER MENDENHALL PA-C [address] [place] [address], [place], [address], [place] [facility] 06/02/2023 11:02:58 OBGyn Episode No OBEpisode recorded.
--- OUTSIDE RECORDS SUMMARY | 2024-09-06 09:21 | XMS_ITS ---
Author Name [facility] Organization Unknown History of Medication Use Medication Directions Dispensed Refills Start Date End Date Stat us estradiol 1 mg tablet TAKE 1 TABLET BY MOUTH EVERY DAY 02/13/2023 active cefadroxil 500 mg capsule 06/04/2023 completed diclofenac sodium 75 mg tablet,delayed release 75 mg every day by oral route. 02/13/2023 active halobetasol propionate 0.05 % topical ointment APPLY TO TO THE AFFECTED AREA TWICE DAILY OF PSORIASIS ON HANDS AND FEET DAILY 02/13/2023 active tramadol 50 mg tablet 06/04/2023 completed methocarbamol 750 mg tablet 06/04/2023 completed ondansetron 8 mg disintegrating tablet 06/04/2023 com pleted levofloxacin 250 mg tablet TAKE 1 TABLET BY MOUTH EVERY DAY FOR 5 DAYS 02/13/2023 completed lisinopril 10 mg-hydrochlorothiazid e 12.5 mg tablet TAKE 1 TABLET BY MOUTH EVERY DAY 02/13/2023 active pantoprazole 40 mg tablet,delayed release 06/04/2023 completed meloxicam 15 mg tablet 06/04/2023 completed ibuprofen 800 mg tablet TAKE 1 TABLET BY MOUTH THREE TIMES DAILY NEEDED FOR PAIN 02/13/2023 completed Allergies Allergen Reaction Severity Comment Documented Date Source Statu s OXYCODONE itching E[facility] PENICILLINS rash [facility] AMLODIPINE hives [facility] Problems Problem Status Onset Date Problem Type Date of Resoluti on Source Arthritis of hip active 2023-04-01 ProblemAct E NS_[facility]ECT Osteoarthritis of left hip joint active 2023-02-11 ProblemAct E[facility]
[2024-09-06 09:27] LABS: Basophils Percent Auto 0.4 % (0-2); Eosinophils Absolute Auto 0.1 X10*3/uL (0.0-0.4); Eosinophils Percent Auto 0.8 % (0-4); Hematocrit 39.4 % (37.0-47.0); Imm Gran Abs Auto 0.02 X10*3/uL (0.00-0.03); Imm Gran Pct Auto 0.2 % (0.0-0.4); Lymphocytes Absolute Auto 2.3 X10*3/uL (1.2-4.9); Lymphocytes Percent Auto 27.6 % (20-40); Mean Corpuscular Hemoglobin 29.7 pg (27.0-33.0); Mean Corpuscular Volume 90.2 fL (80.0-98.0); Mean Platelet Volume 9.1 fL (9.4-12.3); Monocytes Absolute Auto 0.4 X10*3/uL (0.1-1.2); Monocytes Percent Auto 4.4 % (2-11); Neutrophils Absolute Auto 5.5 x10*3/uL (2.0-8.3); Neutrophils Percent Auto 66.6 % (45-73); Platelet Count 278 X10*3/uL (160-400); Red Blood Count 4.37 X10*6/uL (4.20-5.50); Red Cell Distribution Width 12.5 % (11.0-16.0); White Blood Count 8.3 X10*3/uL (4.8-10.8)
[2024-09-06 10:52] LABS: Alanine Aminotransferase 27 U/L (0-31); Albumin Level 4.1 g/dL (3.5-5.0); Alkaline Phosphatase 53 U/L (39-117); Anion Gap 12 (12-20); Aspartate Amino Transferase 26 U/L (5-31); Bilirubin Total 0.3 mg/dL (0.0-1.0); Blood Urea Nitrogen 22 mg/dL (9-16); Calcium 9.4 mg/dL (8.4-10.2); Carbon Dioxide 28 mmol/L (22-29); Chloride 105 mmol/L (96-108); Estimated Glomerular Filt Rate > 60; Glucose Random 106 mg/dL (60-115); Potassium 4.2 mmol/L (3.3-5.1); Sodium 141 mmol/L (135-145); Total Protein 7.1 g/dL (6.5-8.0)
[2024-09-06 11:13] LABS: HBS Num1 7.61 mIU/mL (0-7.99); HBc Num1 0.06 S/CO (0.00-0.79); HBsAGNum1 0.35 S/CO (0.00-0.99); Hepatitis B Core Antibody Nonreactive (Nonreactive); Hepatitis B Surface Antigen Negative (Negative); ~HepC Num1 0.05 S/CO (0.00-0.79); ~Hepatitis B Surface Antibody NONREACTIVE (Nonreactive); ~Hepatitis C Antibody Nonreactive (Nonreactive)
[2024-09-09 14:18] LABS: TS Negative Control Passed; TS Panel A 0; TS Panel B 0; TS Positive Control Passed; TSpotTB Negative (Negative)
[2024-09-10 10:53] LABS: HIV RNA PCR Qn Copies Not Detected Copies/mL; HIV RNA PCR Qn Log Copies Not Detected Log cps/mL
== END 2024-09-06 08:49 | disposition home or self-care (01) ==
LOC: HO.LAB 08:48
PROVIDERS: PCP Internal Medicine; Visit Provider Physician Assistant Medical
DX: L40.0 Psoriasis vulgaris (principal)
CPT/HCPCS: 36415; 80053; 85025; 86481; 86704; 86706; 86803; 87340; 87536; 87900

== ENCOUNTER 2025-03-01 10:43 | Outpatient (REF) | payer MEDICARE, SELFPAY ==
--- OUTSIDE RECORDS SUMMARY | 2024-09-06 06:30 | XMS_ITS ---
Author Organization Ismael Barba MD Address [address] [place], [place] [id number] Care Team Providers Care Grab Operator Name Role Phone Ismael Barba Primary Care Provider [phone] Allergies Allergen (clinical drug ingredient) Drug/Non Drug [...] kg/m2 09/06/2024 weight is down 2 pounds [facility] e 03-06-24 Encounters Encounter Location Date Provider Diagnosis Ismael Barba MD [address] [place] [address] [place] [phone] 09/06/2024 Ismael Barba Essential hypertension I10 and [...] w meds Next Appt Details Provider Name:Ismael Ames ier, 03/08/2025 11:00:00 AM, [address] [place] [address], [address], [place], [place], [phone], Progress Notes * Zamzam BRITTON CDOB:1954 (69 yo F)Acc No.[id number]:09/06/2024 Progress Notes Patient: Paulo Zamzam CASTILLO Provider: Stephenie Barba MD :1955 A ge:69 Y S ex:Female Date:09/06/2024 Address: [address] [id number] Subjective: * Chief Complaints: * 6 month [...] true * Provider: Stephenie Barba MD Date: 0 09/06/2024 Generated for Tripp ash/Christiano/Fatmatasmitting on: 0 03/01/2025 11:22 AM EDT History and Physical Notes * HPI [...]
[2025-03-01 10:46] LABS: MANUAL DIFF FLAG NO
[2025-03-01 11:05] LABS: Appearance Urine Cloudy; Glucose Urine UA Negative (Negative); Hematocrit 35.5 % (37.0-47.0); Hemoglobin 11.9 g/dl (12.0-16.0); Imm Gran Abs Auto 0.01 X10*3/uL (0.00-0.03); Imm Gran Pct Auto 0.1 % (0.0-0.4); Lymphocytes Absolute Auto 2.9 X10*3/uL (1.2-4.9); Mean Corpuscular HGB Conc 33.5 g/dl (31.0-35.0); Mean Corpuscular Hemoglobin 30.1 pg (27.0-33.0); Mean Corpuscular Volume 89.6 fL (80.0-98.0); NRBC Abs Auto 0.000 X10*3/uL (0.0-0.012); NRBC Pct Auto 0.0 /100WBC (0.0-0.2); PH 5.0 (5.0-9.0); Platelet Count 295 X10*3/uL (160-400); Red Blood Count 3.96 X10*6/uL (4.20-5.50); Specific Gravity - Urine 1.025 (1.005-1.025); UMIC TRIGGER UACC YES; White Blood Count 7.4 X10*3/uL (4.8-10.8)
[2025-03-01 11:19] LABS: Alanine Aminotransferase 26 U/L (0-31); Albumin Level 4.2 g/dL (3.5-5.0); Alkaline Phosphatase 55 U/L (39-117); Anion Gap 13 (12-20); Aspartate Amino Transferase 28 U/L (5-31); Blood Urea Nitrogen 30 mg/dL (9-16); Calcium 8.9 mg/dL (8.4-10.2); Carbon Dioxide 26 mmol/L (22-29); Chloride 106 mmol/L (96-108); Cholesterol 233 mg/dL (<200); Estimated Glomerular Filt Rate > 60; HDL Cholesterol 67 mg/dL (>40); Potassium 4.5 mmol/L (3.3-5.1); Sodium 140 mmol/L (135-145); Total Protein 6.7 g/dL (6.5-8.0); Triglycerides 78 mg/dL (<150)
--- OUTSIDE RECORDS SUMMARY | 2025-03-01 11:22 | XMS_ITS | Clinical Summary ---
Author Organization [facility] it Address [address] [place] [address] Care Team Providers Care Forensic Scientist Name Role Phone Ismael Barba MD Primary Care Provider Surgical History Surgery Date Site/Laterality Comments BACK SURGERY 2014 PROCEDURE:BACK SURGERY;COMMENT:Laminectomy HYSTERECTOMY PROCEDURE:HYSTERECTOMY APPENDECTOMY PROCEDURE:APPENDECTOMY VARICOSE VEIN SURGERY 1995 Left PROCEDURE:VARICOSE VEIN SURGERY CERVICAL LAMINECTOMY 2010 PROCEDURE:CERVICAL LAMINECTOMY COLONOSCOPY PROCEDURE:COLONOSCOPY UPPER GASTROINTESTINAL ENDOSCOPY PROCEDURE:UPPER GASTROINTESTINAL ENDOSCOPY Medical History Medical History Date Comments Hypertension DX:Hypertension Breakdown (mechanical) of ur inary electronic stimulator device, subsequent encounter 08/29/2020 DX:Breakdown (mechanical) of urinary electronic stimulator device, subsequent encounter;COMMENT:[employer] Psoriasis DX:Psoriasis Family History Medical History Relation Name Comments No Known Problems Father Heart attack Mother Relation Name Status Comments Brother Alive Father (Age 49) Industrial accident Mother (Age 98) Cardiac a rrest Sister Alive Social History Tobacco Use Types Packs/Day Years Used Date Smoking Tobacco: Former Cigarettes Q uit: 08/22/2017 Smokeless Tobacco: Never Alcohol Use Standard Drinks/Week Comments Yes 1 (1 standard drink = 0.6 oz pur e alcohol) Comments Unknown Sex and Gender Information Value Date Recorded Sex Assigned at Not on file Legal Sex Female 3:28 AM EST Gender Identity Not on file Sexual Orientation Not on file Obstetrics History Last Filed Vital Signs Vital Sign Reading Time Taken Comments Blood Pressure 119/78 05/02/2023 9:12 AM EDT Sitting Right arm Pulse 64 05/02/2023 9:12 AM EDT Temperature - - Respiratory Rate - - Oxygen Saturation - - Inhaled Oxygen Concentration - - Weight 67.1 kg (148 lb) 05/02/2023 9:12 AM EDT Height 157.4 cm (5' 1.97 ) 05/02/2023 9 :12 AM EDT Body Mass Index 27.1 05/02/2023 9:12 AM EDT Plan of Treatment Health Maintenance Due Date Last Done Comments Breast Cancer Screening 1955 DTaP,Tdap,and Td Vaccines (1 - Tdap) 01/24/1975 Pneumococcal Vaccine: 50+ Ye ars (1 of 1 - PCV) 01/24/2006 Zoster Vaccines (1 of 2) 01/24/2006 Colorectal Cancer Screening: Colonoscopy 09/25/2023 Depression Screening 09/25/2023 Falls Risk Assessment 09/25/2023 Hepatitis C Screening 09/25/2023 Osteoporosis Screening (Bone Density Screening) 09/25/2023 Social Influencers of Health Screening 09/25/2023 COVID-19 Vaccine ( - 2023-2 5 season) 2024 Influenza Vaccine (#1) 2025 RSV Immunization Adult Patie nts (1 - 1-dose 75+ series) 01/24/2031 HIB Vaccines Aged Out No longer eligi ble based on patient's age to complete this topic HPV Vaccines Aged Out No longer eligi ble based on patient's age to complete this topic Hepatitis A Vaccines Aged Out No long er eligible based on patient's age to complete this topic Hepatitis B Vaccines Aged Out No long er eligible based on patient's age to complete this topic IPV Vaccines Aged Out No longer eligi ble based on patient's age to complete this topic MMR Vaccines Aged Out No longer eligi ble based on patient's age to complete this topic Meningococcal ACWY Vaccine Aged Out N o longer eligible based on patient's age to complete this topic Meningococcal B Vaccine Aged Out No l onger eligible based on patient's age to complete this topic RSV Immunization Patients Un julia 20 months Aged Out No longer eligible b ased on patient's age to complete this topic Varicella Vaccines Aged Out No longer eligible based on patient's age to complete this topic Medical Devices Implanted Type Area Director Of Vital Statistics Device Identifier Shelf Expiration Date Model / Serial / Lot Tritanium Cluster Hole Shell 50mm [facility] [id number] Implanted:Qty: 1 on 05/19/2023 by Fady Pool MD Left: Hip [employer] [id number] 02/11/2028 702-04-50D / / [id number] Lp Hex Screw 6.5x25mm Stry-Howm [id number] Implanted:Qty: 1 on 05/19/2023 by Fady Pool MD Left: Hip [employer] [id number] 12/05/2027 5723-5471 / / [id number] Lp Hex Screw 6.5x25mm Stry-Howm [id number] Implanted:Qty: 1 on 05/19/2023 by Fady Pool MD Left: Hip [employer] [id number] 12/05/20271739-2675 / / [id number] Liner Trident X3 0 Deg 36mm 3.9mm Sz D Stry-Howm [id number] Implanted:Qty: 1 on 05/19/2023 by Fady Pool MD Left: Hip [employer] [id number] 03/19/2028 723-00-36D / / [id number] Lp Hex Screw 6.5x15mm Stry-Howm [id number] Implanted:Qty: 1 on 05/19/2023 by Fady Pool MD Left: Hip [employer] [id number] 12/01/2027 6440-3037 / / U6LE Hip Head Delta Susanna 36mm 0 Stry-Howm [id number] Implanted:Qty: 1 on 05/19/2023 by Fady Pool MD Left: Hip [employer] [id number] 02/09/2028 6570-0-136 / / [id number] Biofit Collared Prim #6 [facility] [id number] Implanted:Qty: 1 on 05/19/2023 by Fady Pool MD [employer] [facility] [id number] / / Care Teams Forensic Scientist Relationship Specialty Start Date End Date Ismael Barba MD PCP - General Internal Medicine 07/31/18
--- OUTSIDE RECORDS SUMMARY | 2025-03-01 11:22 | XMS_ITS | Patient Health Record ---
Author Organization [facility] thu [place]le Address [address] [place] [address] Care Team Providers Care Press Tender Incendiary Grenade Name Role Phone Freda HERRERA, Ismael Primary Care Provider Dylan Calderón Unavailable [phone] Allergies Allergen (clinical drug ingredient) Drug/Non Drug Allergy documented on EMR Reaction Allergy Type Onset Date Status Penicillin Unknown Drug Allergy Active codeine Codeine Unknown Drug Allergy Active Reason For Referral No Information Medications Medication SIG (Take, Route, Frequency, Duration) Notes Start Date End Date Status Physical Therapy . . . 2-3x/week; Durat ion: 3-4 weeks 09/26/2012 Not-Taking Paxil 20 MG 1 tablet in the morn ing Orally Once a day; Duration: 30 day(s) Not-Taking Estradiol 0.5 MG 1 tablet Orally Active Diclofenac Sodium 75 MG 1 tablet with fo od or milk Orally Twice a day Active Amitriptyline HCl 10 MG 1 tablet Orally Once a day Active Social History Tobacco Use: Social History Observation Description Date Details (start date - stop date) Former Smoker NA - NA Tobacco Use/Smoking Question Answer Notes Are you a: former smoker When did you stop smoking? 2017 Additional Findings: Tobacco Non-User Current no n-smoker Alcohol Screen Question Answer Notes Did you have a drink containing alcohol in the p ast year? Yes Points 0 Interpretation Negative Tobacco use other than smoking: Question Answer Notes Are you an other tobacco user? No Problems Problem Type SNOMED Code ICD Code Onset Dates Problem Status W/U Status Risk Notes Problem Acquired hallux valgus (46797307) Hallux valgus (acquired), right foot (M20.11) Active confirmed Problem Acquired hammer toe of right foot (0503679606769 105) Other hammer toe(s) (acquired), right foot (M20.41) Active confirmed Problem Acquired hammer toe of left foot (6435315118884 103) Other hammer toe(s) (acquired), left foot (M20.42) Active confirmed Plan Of Treatment Pending Test Test Name Order Date X ray : Foot, left 2V 08/30/2012 X ray : Foot, left 2V 03/31/2018 X ray : Foot, right 2V 03/31/2018 [id number] TENDON SHEATH/LIGAMENT 0 09/01/201266740,[id number] TENDON SHEATH/LIGAMENT 0 09/26/2012,[id number] TENDON SHEATH/LIGAMENT 0 10/24/2012 Insurance Providers Payer Name Payer Address Payer Phone Subscriber Number Group Number Insured Name Patient Relationship to Insured Coverage Start Date Coverage End Date [facility] [address] [place] [address] [phone] [id number] Zamzam Haney Self - patient is the insured Medical (General) History Medical History History ICD Code joint implants/screws measles chicken pox Anxiety Arthritis Depression Bursitis Plantar Fasciitis Myositis Pain in Limb Surgical History Surgery Date(Month/Year) appendectomy varicose vein stripping rotator cuff tear repair 10/2012 L4-5, L5-S1 Spondylosis 07/05/15
--- OUTSIDE RECORDS SUMMARY | 2025-03-01 11:22 | XMS_ITS ---
Author Name [facility] Organization Unknown History of Medication Use Medication Directions Dispensed Refills Start Date End Date Stat us diclofenac sodium 75 mg tablet,delayed release 75 mg every day by oral route. 09/01/2023 active cefadroxil 500 mg capsule 09/01/2023 active meloxicam 15 mg tablet 09/01/2023 active methocarbamol 750 mg tablet 09/01/2023 completed ondansetron 8 mg disintegrating tablet 09/01/2023 completed ibuprofen 800 mg tablet TAKE 1 TABLET BY MOUTH THREE TIMES DAILY NEEDED FOR PAIN 06/13/2023 active estradiol 1 mg tablet TAKE 1 TABLET BY MOUTH EVERY DAY active lisinopril 10 mg-hydrochlorothiazi de 12.5 mg tablet TAKE 1 TABLET BY MOUTH EVERY DAY active oxycodone-acetaminop hen 5 mg-325 mg tablet TAKE 1 TABLET BY MOUTH EVERY 4 HOURS WHILE AWAKE NEEDED FOR PAIN active Allergies Allergen Reaction Severity Comment Documented Date Source Statu s AMLODIPINE HIVES ENS_AONECT OXYCODONE ITCHING ENS_AONECT PENICILLINS RASH ENS_AONECT Problems Problem Status Onset Date Problem Type Date of Resoluti on Source Arthritis of hip active 2023-04-01 ProblemAct E NS_AONECT Osteoarthritis of left hip joint active 2023-02-11 ProblemAct ENS_AONECT Encounters Encounter Type Encounter Reason Primary Diagnosis Location Date Ambulatory [facility] [place] 05/31/2024 Ambulatory [facility] [place] 05/31/2024 Ambulatory [facility] [place] 05/31/2024 Ambulatory [facility] [place] 10/13/2023 Ambulatory [facility] [place] 09/02/2023 Ambulatory [facility] [place] 09/02/2023 Ambulatory [facility] [place] 09/01/2023 Ambulatory [facility] [place] 09/01/2023 Ambulatory [facility] [place] 09/01/2023 Ambulatory [facility] [place] 08/29/2023 Ambulatory [facility] [place] 08/29/2023 Ambulatory [facility] [place] 06/15/2023 Ambulatory [facility] [place] 06/14/2023 Ambulatory [facility] [place] 06/02/2023 Ambulatory Encounter for other preprocedural examination Encounter for other preprocedural examination [facility] 05/19/2023 Ambulatory [facility] [place] 05/12/2023 Ambulatory [facility] [place] 05/11/2023 Ambulatory [facility] 04/21/2023 Ambulatory Anemia, unspecified Anemia, unspecified [facility] 04/20/2023 Ambulatory [facility] [place] 04/14/2023 Ambulatory [facility] [place] 04/05/2023 Ambulatory [facility] [place] 04/01/2023 Ambulatory [facility] [place] 03/11/2023 Ambulatory [facility] [place] 03/10/2023 Ambulatory [facility] [place] 02/07/2023 Ambulatory [facility] [place] 02/07/2023 Ambulatory [facility] [place] 02/07/2023 Ambulatory [facility] [place] 02/04/2023 Ambulatory [facility] [place] 01/31/2023 Ambulatory [facility] [place] 01/31/2023 Care Team Organization Name Specialty Phone Email Start Date End Da te [facility] 04/22/2023 [facility] 04/20/202303/24 [facility] 04/20/2023 [facility] 11/09/2024 [facility]
--- OUTSIDE RECORDS SUMMARY | 2025-03-01 11:23 | XMS_ITS | Clinical Summary ---
Author Organization [facility] Address [address] [place] [address] Care Team Providers Care Field Cashier Name Role Phone Ismael Barba MD Primary Care Provider Allergies Active Allergy Reactions Criticality Noted Date Comments Amlodipine Hives,Other (See Comments) High 3 & Headache Oxycodone Itching,Rash Low 07/19/2017 Penicillins Rash Low 07/19/2017 Medications Medication Sig Dispensed Refills Start Date End Date Status estradiol (ESTRACE) 1 MG tablet Take 1 tablet (1 mg total) by mouth daily. 0 02/07/2023 Active halobetasol (ULTRAVATE) 0.05 % ointment APPLY TO TO THE AFFECTED AREA TWICE DAILY OF PSORIASIS ON HANDS AND FEET DAILY 0 Active lisinopril-hydroCHLORO thiazide (PRINZIDE,ZESTORETIC) tablet 10-12.5 mg Take 1 tablet by mouth daily. 0 02/05/2023 Active Biotin w/ Vitamins C & E (HAIR/SKIN/NAILS PO) Take 2 tablets by mouth daily. 0 Active acetaminophen (TYLENOL EXTRA STRENGTH) 500 MG tablet Take 2 tablets (1,000 mg total) by mouth every 8 (eight) hours as needed for pain. 60 tablet 0 05/19/2023 Active meloxicam (MOBIC) 15 MG tablet Take 1 tablet (15 mg total) by mouth daily. 15 tablet 0 05/20/2023 Active methocarbamol (ROBAXIN) 750 MG tablet Take 1 tablet (750 mg total) by mouth every 6 (six) hours as needed (spasm). 50 tablet 0 05/19/2023 Active traMADol (ULTRAM) 50 MG tablet Take 50 mg by mouth every 6 (six) hours as needed for pain. 40 tablet 0 05/19/2023 Active ondansetron (ZOFRAN-ODT) 8 MG disintegrating tablet Take 1 tablet (8 mg total) by mouth every 8 (eight) hours as needed for nausea. 20 tablet 0 05/19/2023 Active Family History Medical History Relation Name Comments No Sig Med Hx Father Heart attack Mother Relation Name Status Comments Brother Alive Father (Age 49) Industrial accident Mother (Age 98) Cardiac ar rest Sister Alive Social History Tobacco Use Types Packs/Day Years Used Date Smoking Tobacco: Former Cigarettes 0.3 18 Q uit: 2018 Smokeless Tobacco: Never Tobacco Cessation:Counseling Given: Not Answered Alcohol Use Standard Drinks/Week Comments Yes 1 (1 standard drink = 0.6 oz pur e alcohol) 1 day/ week 1 drink Sex and Gender Information Value Date Recorded Sex Assigned at Female 04/21/2023 1:23 PM EDT Gender Identity Female 04/21/2023 1:23 PM EDT Sexual Orientation Straight 05/19/2023 5: 24 AM EDT Job Start Date Occupation Industry Not on file Not on file Not on file Last Filed Vital Signs Vital Sign Reading Time Taken Comments Blood Pressure 100/77 05/19/2023 12:52 PM EDT Pulse 66 05/19/2023 12:52 PM EDT Temperature 36.1 C (97 F) 05/19/2023 12:52 PM EDT Respiratory Rate 24 05/19/2023 12:52 PM EDT Oxygen Saturation 96% 05/19/2023 12:52 PM EDT Inhaled Oxygen Concentration - - Weight 67.1 kg (148 lb) 05/19/2023 5:29 AM EDT Height 157.5 cm (5' 2 ) 05/19/2023 5:29 AM EDT Body Mass Index 27.07 05/19/2023 5:29 AM EDT Plan of Treatment Health Maintenance Due Date Last Done Comments Hepatitis C Screening 1955 COVID-19 Vaccine (#1) 1955 Depression Screening 1968 Preventative Health Evaluation 01/24/1974 Colon Cancer Screening (Colonoscopy) 01/24/2001 Breast Cancer Screening (Mammogram) 01/24/2006 Fall Risk Assessment 01/24/2021 Osteoporosis Screening (DEXA Scan) 01/24/2021 Influenza Vaccine (#1) 2025 3, 06/09/2022, 05/04/2021 Pneumococcal Vaccine (3 of 3 - PPSV23 or PCV20) 12/23/2025 12/23/2020, 07/04/2017, 06/26/2015 DTap / Tdap / Td (2 - Td or Tdap) 01/10/2028 01/09/2018 RSV Adult > 60+ Yrs or (1 - 1-dose 75+ series) 01/24/2031 Shingrix-Zoster Vaccine Completed 09/11/19, 05/22/2019 Hepatitis B Vaccines Aged Out No long er eligible based on patient's age to complete this topic RSV Ped < 20 months Aged Out No longe r eligible based on patient's age to complete this topic Medical Devices Implanted Type Area Bookkeeping Assistant Device Identifier Shelf Expiration Date Model / Serial / Lot Tritanium Cluster Hole Shell 50mm Stry-Howm [id number] - [id number] Implanted:Qty: 1 on 05/19/2023 by Fady Pool MD at [facility] Left: Hip [employer] [employer] [id number] 02/11/2028 702-04-50D / / [id number] Lp Hex Screw 6.5x25mm Stry-Howm [id number] - [id number] Implanted:Qty: 1 on 05/19/2023 by Fady Pool MD at [facility] Left: Hip [employer] [id number] 12/05/2027 6474-7115 / / U6WH Lp Hex Screw 6.5x25mm Stry-Howm [id number] - [id number] Implanted:Qty: 1 on 05/19/2023 by Fady Pool MD at [facility] Left: Hip [employer] [id number] 12/05/2027 9533-3148 / / U6WH Liner Trident X3 0 Deg 36mm 3.9mm Sz D Stry-Howm [id number] - [id number] Implanted:Qty: 1 on 05/19/2023 by Fady Pool MD at [facility] Left: Hip [employer] [id number] 03/19/2028 723-00-36D / / [id number] Lp Hex Screw 6.5x15mm Stry-How [id number] - [id number] Implanted:Qty: 1 on 05/19/2023 by Fady Pool MD at [facility] Left: Hip [employer] [id number] 12/01/2027 2841-0747 / / U6LE Hip Head Delta Susanna 36mm 0 Stry-How [id number] - [id number] Implanted:Qty: 1 on 05/19/2023 by Fady Pool MD at [facility] Left: Hip [employer] [id number] 02/09/2028 6570-0-136 / / [id number] Biofit Collared Prim #6 Smn-Orth [id number] - [id number] Implanted:Qty: 1 on 05/19/2023 by Fady Pool MD at [facility] [employer] [id number] / / Advance Directives For more information, please contact: [phone] Latest Code Status on File Code Status Date Activated Date Inactivated Comments Full Code 05/19/2023 9:10 AM 05/19/2023 8:29 PM This code status was ascertained in the following way: discussion with patient . Code Status History Code Status Date Activated Date Inactivated Comments Full Code 05/19/2023 5:17 AM 05/19/2023 9:10 AM This code status was ascertained in the following way: discussion with patient . Care Teams Field Cashier Relationship Specialty Start Date End Date Ismael Barba MD [address] [place] [address] [place] [phone] PCP - General Internal Medicine 07/31/18
--- OUTSIDE RECORDS SUMMARY | 2025-03-01 11:23 | XMS_ITS | Patient Health Record ---
Author Organization [facility] Address [address] [place] [address] Care Team Providers Care Commercial Carpenter Name Role Phone Freda HERRERA, Ismael Primary Care Provider Pranay Limon Unavailable [phone] Allergies Allergen (clinical drug ingredient) Drug/Non Drug Allergy documented on EMR Reaction Allergy Type Onset Date Status oxycodone OxyContin Unknown Drug Allergy Active oxycodone Oxycodone HCl Unknown Drug Allergy Act kiran pcn (uncoded) Unknown Allergy Active Reason For Referral No Information Medications Medication SIG (Take, Route, Frequency, Duration) Notes Start Date End Date Status Lisinopril-hydroCHLOROthia zide 10-12.5 MG 1 tablet Orally Once a day Active Diclofenac Active Social History Alcohol Screen Question Answer Notes Did you have a drink contain ing alcohol in the past year? Yes How often did you have a dri nk containing alcohol in the past year? Never (0 point) How many drinks did you have on a typical day when you were drinking in the past year? 1 or 2 drinks (0 point) How often did you have 6 or more drinks on one occasion in the past year? Never (0 point) Points 0 Interpretation Negative Section Notes: Occasional cigarettes, 1 gla ss of wine QD Occasional cigarettes, occ 1 glass of wine QD Problems Problem Type SNOMED Code ICD Code Onset Dates Problem Status W/U Status Risk Notes Problem 980218227 Encounter for screening for malignant neoplasm of colon (Z12.11) Active confirmed Problem 199556636 History of adenomatous polyp of colon (Z86.010) Active confirmed Problem 779700983 halfway (current) use of non-steroidal anti-inflammatori es (NSAID) (Z79.1) Active confirmed Problem Screening for malignant neoplasm of rectum (455611986) Encounter for screening for malignant neoplasm of rectum (Z12.12) Active confirmed Problem 32759023 Preprocedural examination (Z01.818) Active confirmed Problem 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) Active confirmed Plan Of Treatment Pending Test Test Name Order Date Pathology 04/10/2021 Future Test Test Name Order Date COLONOSCOPY 12/23/2015 COLONOSCOPY 02/24/2021 Insurance Providers Payer Name Payer Address Payer Phone Subscriber Number Group Number Insured Name Patient Relationship to Insured Coverage Start Date Coverage End Date [employer] [facility] [address] [place], [place] [id number] POINDEXT ER, TYLOR Self - patient is the insured [employer] [address] [place] [address] [id number] POINDEXT ER, TYLOR Self - patient is the insured Medical (General) History Medical History History ICD Code Psoriasis Denies NV,DM,CVA,Lung disease,renal dise ase Negative colonoscopy with Dr. Peter at [facility] approx 2001 Urinary incontinence--s/p interstim with good relief Colonoscopy 04/2016 with a small tubular adenoma removed HTN Arthritis Surgical History Surgery Date(Month/Year) Back surgery for sciatica---L4/L5-Dr. Tereso metz 06/25/[address] Rome Meléndez Hysterectomy C-spine surgery with Dr. Tod Rivers for bladder control--Dr. Xavier weldon
[2025-03-01 11:38] LABS: UACC Culture Trigger YES
[2025-03-01 11:44] LABS: Other Crystals Urine Present
== END 2025-03-01 10:44 | disposition home or self-care (01) ==
LOC: HO.LNP 10:43
PROVIDERS: Visit Provider Internal Medicine
DX: Z00.00 Encounter for general adult medical examination without abnormal findings (principal); I10 Essential (primary) hypertension
CPT/HCPCS: 80053; 80061; 81001; 85025; 87086

== ENCOUNTER 2025-05-06 12:53 | Outpatient (REF) | payer MEDICARE, SELFPAY ==
--- OUTSIDE RECORDS SUMMARY | 2024-09-06 06:30 | XMS_ITS ---
Author Organization Ismael Barba MD Address [address] [place], [place] [id number] Care Team Providers Care Clinical Psychologist Private Practice Name Role Phone Ismael Barba Primary Care Provider Allergies Allergen (clinical drug ingredient) Drug/Non Drug Allergy documented on EMR Reaction Allergy Type Onset Date Status oxycodone oxycodone (uncoded) itch Allergy Active amlodipine Amlodipine (uncoded) rash Allergy Active penicillin (uncoded) hives Allergy Active REASON FOR VISIT 6 month Medications Medication SIG (Take, Route, Frequency, Duration) Notes Start Date End Date Status Diclofenac Sodium 75 MG TAKE 1 TABLET BY MOUTH TWICE DAILY WITH FOOD OR MILK for 90 Active Lisinopril-hydroCHLOROth iazide 10-12.5 MG TAKE 1 TABLET BY MOUTH EVERY DAY Orally Once a day Active Clobetasol Propionate 0.05 % APPLY TWICE A DAY TO AREAS OF RASH FOR UP TO TWO WEEKS, THEN 1 WEEK BREAK, AVOID FACE/BODY FOLDS. External Active ProAir HFA 108 (90 Base) MCG/ACT INHALE 2 PUFFS NEEDED EVERY 6 HOURS FOR 30 DAYS for 25 Not-Taking Vital Signs Blood pressure systolic 112 mm Hg 09/06/19 25 Blood pressure diastolic 60 mm Hg 025 Height 63.25 in 09/06/2024 Weight 135 lbs 09/06/2024 BMI 23.72 kg/m2 09/06/2024 weight is down 2 pounds [facility] e 03-06-24 Encounters Encounter Location Date Provider Diagnosis Ismael Barba MD [address] [place] [phone] 09/06/2024 Ismael Barba Essential hypertension I10 and Psoriasis L40.9 Assessments Encounter Date Diagnosis (ICD Code) Assessment Notes Treatment Notes Treatment Clinical Notes Section Notes 09/06/2024 Essential hypertension (ICD-10 - I10) doing well on meds, will continue current regiment 09/06/2024 Psoriasis (ICD-10 - L40.9) waiting to get on new meds Plan Of Treatment Medication Medication Name Sig Start Date Stop Date Notes Lisinopril-hydroCHLOROthiazi de 10-12.5 MG TAKE 1 TABLET BY MOUTH EVERY DAY Orally Once a day Clobetasol Propionate 0.05 % APPLY TWICE A DAY TO AREAS OF RASH FOR UP TO TWO WEEKS, THEN 1 WEEK BREAK, AVOID FACE/BODY FOLDS. External Treatment Notes Assessment Notes Essential hypertension doing well on med s, will continue current regiment Psoriasis waiting to get on ne w meds Next Appt Details Provider Name:Ismael nagel, 05/16/2025 07:45:00 AM, [address] [place] [address], [address], [phone], Provider Name:Ismael nagel, 04/24/2026 07:00:00 AM, [address] [place] [address], [address], [phone], Provider Name:Ismael nagel, 05/01/2026 08:00:00 AM, [address] [place] [address], [address], [phone], Progress Notes * Zamzam BRITTON CDOB:1954 (69 yo F)Acc No.[id number]:09/06/2024 Progress Notes Patient: Zamzam CAIN Provider: Stephenie Barba MD :1955 A ge:69 Y S ex:Female Date:09/06/2024 Address: [address], [place], [id number] Subjective: * Chief Complaints: * 6 month * HPI: S ymptom(s): patient is a 69 yo female here for 6 month follow up./ psoriasis has come back and they are going to put her on the new med. on hands and feet. * ROS: G eneral/Constitutional: Denies C hills. D enies F atigue. D enies F ever. D enies H eadache. E NT: Patient denies d ecreased sense of smell , any loss of taste , sore throat. D enies S ore throat. R espiratory: Denies C ough. D enies S hortness of breath at rest. D enies S hortness of breath with exertion. G astrointestinal: Denies D iarrhea. D enies N ausea. M usculoskeletal: Patient denies m uscle aches. P eripheral Vascular: Patient denies r ed and blue toes. * Medical History: * Surgical History: * Hospitalization/Major Diagno stic Procedure: * Medications: T akingDiclofenac Sodium 75 MG Tablet Delayed Release TAKE 1 TABLET BY MOUTH TWICE DAILY WITH FOOD OR MILK Clobetasol Propionate 0.05 % Ointment APPLY TWICE A DAY TO AREAS OF RASH FOR UP TO TWO WEEKS, THEN 1 WEEK BREAK, AVOID FACE/BODY FOLDS. External Lisinopril-hydroCHLOROthiazide 10-12.5 MG Tablet TAKE 1 TABLET BY MOUTH EVERY DAY Orally Once a day Taking Diclofenac Sodium 75 MG Tablet Delayed Release TAKE 1 TABLET BY MOUTH TWICE DAILY WITH FOOD OR MILK Taking Clobetasol Propionate 0.05 % Ointment APPLY TWICE A DAY TO AREAS OF RASH FOR UP TO TWO WEEKS, THEN 1 WEEK BREAK, AVOID FACE/BODY FOLDS. External Taking Lisinopril-hydroCHLOROthiazide 10-12.5 MG Tablet TAKE 1 TABLET BY MOUTH EVERY DAY Orally Once a day Not-Taking/PRNProAir HFA 108 (90 Base) MCG/ACT Aerosol Solution INHALE 2 PUFFS NEEDED EVERY 6 HOURS FOR 30 DAYS Not-Taking/PRN ProAir HFA 108 (90 Base) MCG/ACT Aerosol Solution INHALE 2 PUFFS NEEDED EVERY 6 HOURS FOR 30 DAYS DiscontinuedEstradiol 1 MG Tablet 1 tablet Orally Once a day Medication List reviewed and reconciled with the patientDiscontinued Estradiol 1 MG Tablet 1 tablet Orally Once a day Medication List reviewed and reconciled with the patient * Allergies: p enicillin: hivesAmlodipine: rashoxycodone: itchyes[Allergies Verified] Objective: * Vitals: H t: 63.25, Wt: 135, BMI:23.72, BP:112/60, Wt-k.23. weight is down 2 pounds since 03-06-24. * Examination: G eneral Examination: GENERAL APPEARANCE: w ell developed, well nourished. HEAD: n ormocephalic. SKIN: g ood turgor. HEART: r egular rate and rhythm , no murmurs, rubs, gallops. LUNGS: g ood air movement , no wheezes, rales, rhonchi.? Assessment: * Assessment: 1. E ssential hypertension - I10 (Primary) 2 . P soriasis - L40.9 ? Plan: * Treatment: 2. P soriasis Continue Clobetasol Propionate Ointment, 0.05 %, APPLY TWICE A DAY TO AREAS OF RASH FOR UP TO TWO WEEKS, THEN 1 WEEK BREAK, AVOID FACE/BODY FOLDS., External. Notes: waiting to get on new meds * Procedure Codes: * * Sign off status: Completed true * Provider: Stephenie Barba MD Date: 09/06/2024 Generated for Tripp ash/Christiano/Jenniferitting on: 0 05/06/2025 05:44 PM EDT History and Physical Notes * HPI (History of Present Illness) Category Sub-Category Detail Notes Category Not es Symptom(s) patient is a 69 yo female here for 6 month follow up./ psoriasis has come back and they are going to put her on the new med. on hands and feet. Examination Category Sub-Category Detail Notes Category Not es General Examination GENERAL APPEARANCE: well developed , well nourished HEAD: normocephalic HEART: regular rate and rhy thm , no murmurs, rubs, gallops LUNGS: good air movement , no wheezes, rales, rhonchi SKIN: good turgor
--- OUTSIDE RECORDS SUMMARY | 2025-03-01 03:30 | XMS_ITS ---
Author Organization Ismael Barba MD Address [address] [place], [place] [id number] Care Team Providers Care Netbackup Admin Name Role Phone Ismael Barba Primary Care Provider Results Component Value Reference Range Notes Complete Blood Count Auto Di ff Reviewed date:03/01/2025 12:55:24 PM Interpretation: Performing Lab:[facility], [address] [place] [phone] Notes/Report: White Blood Count 7.4 4.8-10.8 X10*3/uL Red Blood Count 3.96 4.20-5.50 X10*6/uL Hemoglobin 11.9 12.0-16.0 g/dl Hematocrit 35.5 37.0-47.0 % Mean Corpuscular Volume 89.6 80.0-98.0 fL Mean Corpuscular Hemoglobin 30.1 27.0-33.0 pg Mean Corpuscular HGB Conc 33.5 31.0-35.0 g/dl Red Cell Distribution Width 13.1 11.0-16.0 % Platelet Count 295 160-400 X10*3/uL Mean Platelet Volume 9.7 9.4-12.3 fL Neutrophils Percent Auto 51.7 45-73 % Imm Gran Pct Auto 0.1 0.0-0.4 % Lymphocytes Percent Auto 39.7 20-40 % Monocytes Percent Auto 6.2 2-11 % Eosinophils Percent Auto 1.6 0-4 % Basophils Percent Auto 0.7 0-2 % NRBC Pct Auto 0.0 0.0-0.2 /100WBC Neutrophils Absolute Auto 3.8 2.0-8.3 x10*3/u L Imm Gran Abs Auto 0.01 0.00-0.03 X10*3/uL Lymphocytes Absolute Auto 2.9 1.2-4.9 X10*3/u L Monocytes Absolute Auto 0.5 0.1-1.2 X10*3/uL Eosinophils Absolute Auto 0.1 0.0-0.4 X10*3/u L Basophils Absolute Auto 0.1 0.0-0.2 X10*3/uL NRBC Abs Auto 0.000 0.0-0.012 X10*3/uL Comprehensive [place]. Panel Fa st Reviewed date:04/25/2025 02:35:20 PM Interpretation:04-25-25 Performing Lab:[facility], [address] [place] [phone] Notes/Report: Sodium 140 135-145 mmol/L Potassium 4.5 3.3-5.1 mmol/L Chloride 106 96-108 mmol/L Carbon Dioxide 26 22-29 mmol/L Anion Gap 13 12-20 Blood Urea Nitrogen 30 9-16 mg/dL Creatinine 0.90 0.5-1.4 mg/dL Estimated Glomerular Filt Rate > 60 Chronic Kidney Disease: Estimated GFR < 60 mL/min/1.73m2 Severe Kidney Disease: Estimated GFR < 15 mL/min/1.73m2 Glucose Fasting 94 60-99 mg/dL Calcium 8.9 8.4-10.2 mg/dL Bilirubin Total 0.3 0.0-1.0 mg/dL Aspartate Amino Transferase 28 5-31 U/L Alanine Aminotransferase 26 0-31 U/L Total Protein 6.7 6.5-8.0 g/dL Albumin Level 4.2 3.5-5.0 g/dL Alkaline Phosphatase 55 39-117 U/L Lipid Panel Reviewed date:03/01/2025 12:44:28 PM Interpretation: Performing Lab:[facility], [address] [place] [phone] Notes/Report: Triglycerides 78 <150 mg/dL Desirable Triglyceride: less than 150 mg/dL Borderline High Triglyceride 150-199 mg/dL High Triglyceride: 200-499 mg/dL Very High Triglyceride: greater than or equal to 5OO mg/dL Cholesterol 233 <200 mg/dL Desirable Cholesterol: less than 200 mg/dL Borderline High Cholesterol: 200-239 mg/dL High Cholesterol: greater than 239 mg/dL LDL Cholesterol Calculated 151 <100 mg/dL Desirable LDL: less than 100 mg/dL Near Optimal/Above Optimal LDL: 110-129 mg/dL Borderline High LDL: 130-159 mg/dL High LDL: 160-189 mg/dL Very High LDL: greater than or equal to 190 mg/dL HDL Cholesterol 67 >40 mg/dL Desirable HDL: greater than 40 mg/dL Note: This HDL assay may give artificially low results in patients with liver disease. UA ClnCatch+Micro w/rflx Cul t Reviewed date:03/01/2025 12:55:48 PM Interpretation: Performing Lab:[facility], [address] [place] [phone] Notes/Report: [id number] Urine, Clean Catch Color Urine Yellow Appearance Urine Cloudy PH 5.0 5.0-9.0 Glucose Urine UA Negative Negative mg/dL Urine Blood Negative Negative Specific [place] - Urine 1.025 1.005-1.025 Urine Protein Negative Neg-Trace mg/dL Urine Ketones Trace Negative mg/dL Nitrite Urine Negative Negative Leukocyte Esterase Urine Small (1+) Negative RBC Urine 0-2 0-2 /HPF WBC Urine 0-5 0-5 /HPF Squamous Epithelial Cell Urine 6-10 0-2 /HPF Other Crystals Urine Present TALC Bacteria Urine None Seen None Seen Hyaline Casts Urine 6-10 0-2 /LPF REASON FOR VISIT yearly fasting labs Encounters Encounter Location Date Provider Diagnosis Ismael Barba MD [address] [place], [place] [id number] 03/01/2025 Ismael Barba Blood tests for routine general physical examination Z00.00 and Essential hypertension I10 Assessments Encounter Date Diagnosis (ICD Code) Assessment Notes Treatment Notes Treatment Clinical Notes Section Notes 03/01/2025 Blood tests for routine general physical examination (ICD-10 - Z00.00) 03/01/2025 Essential hypertension (ICD-10 - I10) Plan Of Treatment Next Appt Details Provider Name:Ismael tillmanr, 05/16/2025 07:45:00 AM, [address], [address], [place], [place], [id number], Provider Name:Ismael tillmanr, 04/24/2026 07:00:00 AM, [address], [address], [place], [place], [phone], Provider Name:Ismael Ames ier, 05/01/2026 08:00:00 AM, [address], [address], [place], [place], [phone], Progress Notes * Zamzam BRITTON CDOB:1954 (70 yo F)Acc No.[id number]:03/01/2025 Progress Note Patient: Paulo ANNA Zamzam C Provider: Stephenie Barba MD :1955 A ge:70 Y S ex:Female Date:03/01/2025 Address:[address] [place] [address], [facility] [id number] Subjective: * Chief Complaints: * 1 . Yearly fasting labs. * Medical History: Objective: * Vitals: Assessment: * Assessment: 1. B lood tests for routine general physical examination - Z00.00 (Primary) 2 .?Essential hypertension - I10 Plan: * Treatment: 2. E ssential hypertension L AB: Complete Blood Count Auto Diff (Collection Date & Time - 03/01/2025 07:30 AM) L AB: Comprehensive [place]. Panel Fast (Collection Date & Time - 03/01/2025 07:30 AM) L AB: Lipid Panel (Collection Date & Time - 03/01/2025 07:30 AM) L AB: UA ClnCatch+Micro w/rflx Cult (Collection Date & Time - 03/01/2025 07:30 AM) * Procedure Codes: 3 6415 VENIPUNCT, ROUTINE* * * The named appointment provid er may or may not be the originator of this progress note, and it is not deemed complete until electronically signed by the appointment provider. Sign off status: Pending * Provider: Stephenie Barba MD Date: 0 03/01/2025 Generated for Tripp ash/Christiano/Yury on: 0 05/06/2025 05:44 PM EDT
--- OUTSIDE RECORDS SUMMARY | 2025-03-08 05:30 | XMS_ITS ---
Author Organization Ismael Barba MD Address [address] [place] [phone] Care Team Providers Care Health Information Director Name Role Phone Ismael Barba Primary Care Provider REASON FOR VISIT RF Diclof Medications Medication SIG (Take, Route, Fr equency, Duration) Notes Start Date End Date Status Diclofenac Sodium 75 MG TAKE 1 TABLET BY MOUTH TWICE DAILY WITH FOOD OR MILK Orally once a day for 90 days Active Encounters Encounter Location Date Provider Diagnosis Ismael Barba MD [facility] [address] [place] [phone] 03/08/2025 Ismael Barba Plan Of Treatment Medication Medication Name Sig Start Date Stop Date Notes Diclofenac Sodium 75 MG TAKE 1 TABLET BY MOUTH TWICE DAILY WITH FOOD OR MILK Orally once a day for 90 days Next Appt Details Provider Name:Ismael nagel, 05/16/2025 07:45:00 AM, [address] [place] [address], [address], [phone], Provider Name:Ismael nagel, 04/24/2026 07:00:00 AM, [address] [place] [address], [place] [address], [place], [place], [phone], Provider Name:Ismael Ames ier, 05/01/2026 08:00:00 AM, [address], [address], [place], [phone], Progress Notes * Zamzam BRITTON CDOB:1954 (70 yo F)Acc No.[id number]:03/08/2025 Patient: Zamzam CAIN :1955 A ge:70 Y S ex:Female Address: [address], [place] [address] * Refills Refill Diclofenac Sodium Tablet Delayed Release, 75 MG, Orally, 90, TAKE 1 TABLET BY MOUTH TWICE DAILY WITH FOOD OR MILK, once a day, 90 days, Refills=3 * true * Date: Generated for Tripp ash/Christiano/Jenniferitting on: 0 05/06/2025 05:44 PM EDT
--- OUTSIDE RECORDS SUMMARY | 2025-04-25 04:00 | XMS_ITS ---
Author Organization Ismael Barba MD Address [address] [place], [place] [id number] Care Team Providers Care Wire Drawing Die Maker Name Role Phone Ismael Barba Primary Care Provider [phone] Allergies Allergen (clinical drug ingredient) Drug/Non Drug Allergy documented on EMR Reaction Allergy Type Onset Date Status oxycodone oxycodone (uncoded) itch Allergy Active amlodipine Amlodipine (uncoded) rash Allergy Active penicillin (uncoded) hives Allergy Active Reason For Referral Reason trigger finer plea se eval and treat Diagnosis 1 Trigger finger (acqu ired) (M65.30) Referral Organization Ismael Barba MD Referring Provider First Name Ismael Referring Provider Last Name Freda Referring Provider Speciality Internal M edicine Referred Provider Lluvia Headley Referred Provider Specialty Orthopedic S urgery General Notes Sofie Barrientos 0 04/25/2025 08:33:56 AM >referral info faxed Referral Priority Routine REASON FOR VISIT annual visit/ must see labs Comp Clute Medications Medication SIG (Take, Route, Frequency, Duration) Notes Start Date End Date Status ProAir HFA 108 (90 Base) MCG/ACT INHALE 2 PUFFS NEEDED EVERY 6 HOURS FOR 30 DAYS for 25 Not-Taking Lisinopril-hydroCHLOROth iazide 10-12.5 MG TAKE 1 TABLET BY MOUTH EVERY DAY Orally Once a day Active Clobetasol Propionate 0.05 % APPLY TWICE A DAY TO AREAS OF RASH FOR UP TO TWO WEEKS, THEN 1 WEEK BREAK, AVOID FACE/BODY FOLDS. External Active Diclofenac Sodium 75 MG TAKE 1 TABLET BY MOUTH TWICE DAILY WITH FOOD OR MILK Orally once a day for 90 days Active Immunizations Vaccine Route Administration Date Status Comme nts Influenza High Dose IM Intramuscular 04/25/2025 Administer ed Social History Tobacco Use: Social History Observation Description Date Details (start date - stop date) Former Smoker NA - NA Tobacco Use/Smoking Question Answer Notes Patient is a former smoker How long has it been since y ou last smoked? > 10 years Additional Findings: Tobacco Non-User Fo rmer smoker, currently using no form of tobacco Alcohol Screen Question Answer Notes Did you have a drink contain ing alcohol in the past year? Yes How often did you have a dri nk containing alcohol in the past year? Monthly or less (1 point) How many drinks did you have on a typical day when you were drinking in the past year? 1 or 2 drinks (0 point) How often did you have 6 or more drinks on one occasion in the past year? Never (0 point) Points 1 Interpretation Negative Problems Problem Type SNOMED Code ICD Code Onset Dates Problem Status W/U Status Risk Notes Problem Pure hypercholesterolemia (170489000) Elevated cholesterol (E78.00) Active confirmed Vital Signs Blood pressure systolic 124 mm Hg 04/25/20 25 Blood pressure diastolic 66 mm Hg 025 Height 63.25 in 04/25/2025 Weight 142 lbs 04/25/2025 BMI 24.95 kg/m2 04/25/2025 weight is up 7 pounds since 09-06-24 Encounters Encounter Location Date Provider Diagnosis Ismael Barba MD [address] [place] [address] Drive [address] [place], [place] [phone] 04/25/2025 Ismael Barba Trigger finger (acquired) M65.30 ; Annual physical exam Z00.00 ; Elevated BUN R79.9 ; Encounter for administration of vaccine Z23 ; Elevated cholesterol E78.00 ; Essential hypertension I10 and Depression screening Z13.31 Assessments Encounter Date Diagnosis (ICD Code) Assessment Notes Treatment Notes Treatment Clinical Notes Section Notes 04/25/2025 Trigger finger (acquired) (ICD-10 - M65.30) referral to hand surgeon z 04/25/2025 Annual physical exam (ICD-10 - Z00.00) labs reviewed and discussed with patient z 04/25/2025 Elevated BUN (ICD-10 - R79.9) will continue to monitor, future lab scheduled z 04/25/2025 Encounter for administration of vaccine (ICD-10 - Z23) HD flu vaccine administered z 04/25/2025 Elevated cholesterol (ICD-10 - E78.00) to diet and repeat next year, will continue to monitor z 04/25/2025 Essential hypertension (ICD-10 - I10) stable, will continue current regiment z 04/25/2025 Depression screening (ICD-10 - Z13.31) negative screen z Plan Of Treatment Treatment Notes Assessment Notes Trigger finger (acquired) referral to damian nd surgeon Annual physical exam labs reviewed and d iscussed with patient Elevated BUN will continue to mon itor, future lab scheduled Encounter for administration of vaccine HD flu vaccine administered Elevated cholesterol to diet and repeat next year, will continue to monitor Essential hypertension stable, will cont inue current regiment Depression screening negative screen Referrals Referral Date Details 04/25/2025 04/25/2025, trigger finer please eval and treatLluvia Next Appt Details Follow Up: 3 Weeks, Reason: Provider Name:Ismael nagel, 05/16/2025 07:45:00 AM, [address] [place] [address], [address], [phone], Provider Name:Ismael nagel, 04/24/2026 07:00:00 AM, [address] [place] [address], [address], [phone], Provider Name:Ismael nagel, 05/01/2026 08:00:00 AM, [address] [place] [address], [phone], Progress Notes * Zamzam BRITTON CDOB:1954 (70 yo F)Acc No.[id number]:04/25/2025 Progress Notes Patient: Zamzam CAIN Provider: Stephenie Barba MD :1955 A ge:70 Y S ex:Female Date:04/25/2025 Address:[address], [id number] Subjective: * Chief Complaints: * a nnual visit/ must see labs Comp Clute * HPI: D epression Screening: PHQ-9 L ittle interest or pleasure in doing things N ot at all, F eeling down, depressed, or hopeless N ot at all, T rouble falling or staying asleep, or sleeping too much N ot at all, F eeling tired or having little energy N ot at all, P oor appetite or overeating N ot at all, F eeling bad about yourself or that you are a failure, or have let yourself or your family down N ot at all, T rouble concentrating on things, such as reading the newspaper or watching television N ot at all, M oving or speaking so slowly that other people could have noticed; or the opposite, being so fidgety or restless that you have been moving around a lot more than usual N ot at all, T houghts that you would be better off or of hurting yourself in some way N ot at all, T otal Score 0 . I nterpretation and Intervention D epression Screening Findings N egative, F ollow-Up for Depression : review of PHQ-9 found negative result, no follow-up needed. C ommunication Needs: Communication Needs D oes the patient have a hearing impairment N o, D oes the patient have a vision impairment? Y es, I f yes, what is the vision impairment? G lasses, D oes the patient have a cognition impairment? N o. F all Risk: History H ave you had any falls with injury in the past year? N o, H ave you had two or more falls in the past year? N o. S PANFILO Questions: SDOH Questions I n the past year have you been worried about losing housing? N o, I n the past year have you or any family members you live with been unable to get any of the following when it was really needed? Check all that apply: N one. S ymptom(s): patient is a 70 yo female here for annual visit with review of recent labs and follow up of chronic issues h as a trigger finger for a couple weeks. * ROS: G eneral/Constitutional: Change in appetite d enies. C hills d enies. F ever d enies. O phthalmologic: Blurred vision d enies. D ischarge d enies. P ain d enies. E NT: Decreased hearing d enies. S ore throat d enies.?Swollen glands d enies. E ndocrine: Cold intolerance d enies. E xcessive thirst d enies. H eat intolerance d enies. W eight loss d enies. R espiratory: Cough d enies. S hortness of breath at rest d enies. S hortness of breath with exertion d enies. W heezing d enies. C ardiovascular: Chest pain at rest d enies. C hest pain with exertion?denies. I rregular heartbeat d enies. S hortness of breath d enies. ? G astrointestinal: Abdominal pain d enies. C hange in bowel habits d enies. D iarrhea d enies. N ausea d enies. R ectal bleeding d enies. V omiting d enies . G enitourinary: Blood in urine d enies. D ifficulty urinating d enies. F requent urination d enies. U rinary incontinence D enies. M usculoskeletal: Painful joints d enies. W eakness d enies. ? S kin: Dry skin d enies. I tching d enies. D enies?Mole(s), changes in moles, new moles or any lesions of concern. D enies P hotosensitivity. R aisha d enies. N eurologic: Dizziness d enies. F ainting d enies. H eadache?denies. * Medical History: * Surgical History: * Hospitalization/Major Diagno stic Procedure: * Family History: F ather: 49 yrs. M other: alive 97 yrs. 1 brother(s) , 1 sister(s) . 2 daughter(s) . . Industrial Accident Mother has Pacemaker, Denies mental health/substance abuse family history, Denies mental health/substance abuse family history, No pertinent family medical history, No pertinent family medical history. * Social History: T obacco Use: T obacco Use/Smoking P atient is a f ormer smoker, H ow long has it been since you last smoked? > 10 years, A dditional Findings: Tobacco Non-User F ormer smoker, currently using no form of tobacco. D rugs/Alcohol: A lcohol Screen D id you have a drink containing alcohol in the past year? Y es, H ow often did you have a drink containing alcohol in the past year? M onthly or less (1 point), H ow many drinks did you have on a typical day when you were drinking in the past year? 1 or 2 drinks (0 point), H ow often did you have 6 or more drinks on one occasion in the past year? N ever (0 point), P oints 1 , I nterpretation N egative. M iscellaneous: C affeine: yes, frequency:, 1 cup per day. Children: yes. Community involvements: no. Exercise: yes, housework gardening. Home smoke detector use: yes. Housing: owning. Living with: spouse. Marital status: . Occupation: pt is on disability. Pets: 1 cat. * Medications: T akingLisinopril-hydroCHLOROthiazide 10-12.5 MG Tablet TAKE 1 TABLET BY MOUTH EVERY DAY Orally Once a day Clobetasol Propionate 0.05 % Ointment APPLY TWICE A DAY TO AREAS OF RASH FOR UP TO TWO WEEKS, THEN 1 WEEK BREAK, AVOID FACE/BODY FOLDS. External Diclofenac Sodium 75 MG Tablet Delayed Release TAKE 1 TABLET BY MOUTH TWICE DAILY WITH FOOD OR MILK Orally once a day Taking Lisinopril-hydroCHLOROthiazide 10- 12.5 MG Tablet TAKE 1 TABLET BY MOUTH EVERY DAY Orally Once a day Taking Clobetasol Propionate 0.05 % Ointment APPLY TWICE A DAY TO AREAS OF RASH FOR UP TO TWO WEEKS, THEN 1 WEEK BREAK, AVOID FACE/BODY FOLDS. External Taking Diclofenac Sodium 75 MG Tablet Delayed Release TAKE 1 TABLET BY MOUTH TWICE DAILY WITH FOOD OR MILK Orally once a day Not-Taking/PRNProAir HFA 108 (90 Base) MCG/ACT Aerosol Solution INHALE 2 PUFFS NEEDED EVERY 6 HOURS FOR 30 DAYS Medication List reviewed and reconciled with the patientNot-Taking/PRN ProAir HFA 108 (90 Base) MCG/ACT Aerosol Solution INHALE 2 PUFFS NEEDED EVERY 6 HOURS FOR 30 DAYS Medication List reviewed and reconciled with the patient * Allergies: p enicillin: hivesAmlodipine: rashoxycodone: itchyes[Allergies Verified] Objective: * Vitals: H t: 63.25, Wt: 142, BMI:24.95, BP:124/66, Wt-k.41. weight is up 7 pounds since 09-06-24. * P ast Orders: L ab:Urine Culture (Order Date - 03/01/2025) (Collection Date & Time - 03/01/2025) Value Reference Range Urine Culture urogenital contamination. - L ab:Complete Blood Count Auto Diff (Order Date - 03/01/2025) (Collection Date & Time - 03/01/2025 07:30 AM) Value Reference Range White Blood Count 7.4 4.8-10.8 - X10*3/uL Red Blood Count 3.96 L 4.20-5.50 - X10*6/uL Hemoglobin 11.9 L 12.0-16.0 - g/dl Hematocrit 35.5 L 37.0-47.0 - % Mean Corpuscular Volume 89.6 80.0-98.0 - fL Mean Corpuscular Hemoglobin 30.1 27.0-33.0 - pg Mean Corpuscular HGB Conc 33.5 31.0-35.0 - g/ dl Red Cell Distribution Width 13.1 11.0-16.0 - % Platelet Count 295 160-400 - X10*3/uL Mean Platelet Volume 9.7 9.4-12.3 - fL Neutrophils Percent Auto 51.7 45-73 - % Imm Gran Pct Auto 0.1 0.0-0.4 - % Lymphocytes Percent Auto 39.7 20-40 - % Monocytes Percent Auto 6.2 2-11 - % Eosinophils Percent Auto 1.6 0-4 - % Basophils Percent Auto 0.7 0-2 - % NRBC Pct Auto 0.0 0.0-0.2 - /100WBC Neutrophils Absolute Auto 3.8 2.0-8.3 - x10* 3/uL Imm Gran Abs Auto 0.01 0.00-0.03 - X10*3/uL Lymphocytes Absolute Auto 2.9 1.2-4.9 - X10* 3/uL Monocytes Absolute Auto 0.5 0.1-1.2 - X10*3/ uL Eosinophils Absolute Auto 0.1 0.0-0.4 - X10* 3/uL Basophils Absolute Auto 0.1 0.0-0.2 - X10*3/ uL NRBC Abs Auto 0.000 0.0-0.012 - X10*3/uL L ab:Lipid Panel (Order Date - 03/01/2025) (Collection Date & Time - 03/01/2025 07:30 AM) Value Reference Range Triglycerides 78 <150 - mg/dL Cholesterol 233 H <200 - mg/dL LDL Cholesterol Calculated 151 H <100 - mg/dL HDL Cholesterol 67 >40 - mg/dL L ab:UA ClnCatch+Micro w/rflx Cult (Order Date - 03/01/2025) (Collection Date & Time - 03/01/2025 07:30 AM) Value Reference Range Color Urine Yellow - Appearance Urine Cloudy - PH 5.0 5.0-9.0 - Glucose Urine UA Negative Negative - mg/dL Urine Blood Negative Negative - Specific Rusk - Urine 1.025 1.005-1.025 - Urine Protein Negative Neg-Trace - mg/dL Urine Ketones Trace Negative - mg/dL Nitrite Urine Negative Negative - Leukocyte Esterase Urine Small (1+) A Negative - RBC Urine 0-2 0-2 - /HPF WBC Urine 0-5 0-5 - /HPF Squamous Epithelial Cell Urine 6-10 0-2 - /HPF Bacteria Urine None Seen None Seen - Hyaline Casts Urine 6-10 0-2 - /LPF Other Crystals Urine Present - * Examination: G eneral Examination: GENERAL APPEARANCE: w ell developed, well nourished, in no acute distress. HEAD: n ormocephalic, atraumatic. EYES: p upils equal, round, reactive to light and accommodation, sclera non-icteric. EARS: n ormal. ORAL CAVITY: m ucosa moist. THROAT: c lear. NECK/THYROID: n karlos supple, full range of motion, no cervical lymphadenopathy, no bruits. SKIN: w arm and dry, no suspicious lesions. HEART: r egular rate and rhythm, S1, S2 normal, no murmurs.? LUNGS: c lear to auscultation bilaterally. BREASTS: d one by supervising law enforcement analyst. ABDOMEN: s oft, nontender, nondistended, bowel sounds present, normal, no organomegaly , no masses palpable. RECTAL EXAM: d one by supervising law enforcement analyst. FEMALE GENITOURINARY: d one by supervising law enforcement analyst. EXTREMITIES: n o clubbing, cyanosis, or edema. NEUROLOGIC: n onfocal, motor strength normal upper and lower extremities, sensory exam intact. Assessment: * Assessment: 1. A nnual physical exam - Z00.00 (Primary) 2 . 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 E levated BUN - R79.9 4 . E ncounter for administration of vaccine - Z23 5 . E levated cholesterol - E78.00 6 . Essential hypertension - I10 7 . D epression screening - Z13.31 z Plan: * Treatment: 2. 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 E levated BUN L AB: Blood Urea Nitrogen (Ordered for 05/09/2025) Notes: will continue to monitor, future lab scheduled 4. E ncounter for administration of vaccine Notes: HD flu vaccine administered 5. E levated cholesterol Notes: to diet and repeat next year, will continue to monitor 6. E ssential hypertension Notes: stable, will continue current regiment 7. D epression screening Notes: negative screen * Immunizations: Influenza High Dose : 0.5 mL (Dose No:1) (Route: Intramuscular) given by Melonie Coreas , Office Staff on Left Deltoid * Procedure Codes: 9 0662 FLU VACC PRSV FREE INC [id number] ADMN FLU VAC NO FEE SCHED SAME DAY * Preventive Medicine: Immunizations: I nfluenza H ave you had a flu shot since the most recent April 22? Y es. * Follow Up: 3 Weeks * * Sign off status: Completed true * Provider: Stephenie Barba MD Date: 0 04/25/2025 Generated for Tripp ash/Christiano/eTransmitting on: 0 05/06/2025 05:44 PM EDT History and Physical Notes * HPI (History of Present Illness) Category Sub-Category Detail Notes Category Not es Symptom(s) patient is a 70 yo female here for annual visit with review of recent labs and follow up of chronic issues has a trigger finger for a couple weeks Depression Screening PHQ-9 Little inte rest or pleasure in doing things: Not at all Feeling down, depressed, or hopeless: No t at all Trouble falling or staying asleep, or sl eeping too much: Not at all Feeling tired or having little energy: N ot at all Poor appetite or overeating: Not at all Feeling bad about yourself o r that you are a failure, or have let yourself or your family down: Not at all Trouble concentrating on thi ngs, such as reading the newspaper or watching television: Not at all Moving or speaking so slowly that other people could have noticed; or the opposite, being so fidgety or restless that you have been moving around a lot more than usual: Not at all Thoughts that you would be b sandy off or of hurting yourself in some way: Not at all Total Score: 0 Interpretation and Intervention Depression Naa laird Findings: Negative Follow-Up for Depression: : review of PH Q-9 found negative result, no follow-up needed SDOH Questions SDOH Questions In the past year have you been worried about losing housing?: No In the past year have you or any family members you live with been unable to get any of the following when it was really needed? Check all that apply:: None Fall Risk History Have you had any falls with injury i n the past year?: No Have you had two or more falls in the year?: No Communication Needs Communication Needs Does the patient have a hearing impairment: No Does the patient have a vision impairmen t?: Yes If yes, what is the vision impairment?: Glasses Does the patient have a cognition impair ment?: No Examination Category Sub-Category Detail Notes Category Not es General Examination GENERAL APPEARANCE: well dev eloped, well nourished, in no acute distress HEAD: normocephalic, atrau matic EYES: pupils equal, round, reactive to light and accommodation, sclera non-icteric EARS: normal THROAT: clear NECK/THYROID: neck supple, full ra nge of motion, no cervical lymphadenopathy, no bruits HEART: regular rate and rhy thm, S1, S2 normal, no murmurs LUNGS: clear to auscultatio n bilaterally ABDOMEN: soft, nontender, non distended, bowel sounds present, normal, no organomegaly , no masses palpable NEUROLOGIC: nonfocal, motor stre ngth normal upper and lower extremities, sensory exam intact SKIN: warm and dry, no yohana picious lesions EXTREMITIES: no clubbing, cyanosi s, or edema BREASTS: done by supervising law enforcement analyst RECTAL EXAM: done by supervising law enforcement analyst FEMALE GENITOURINARY: done by supervising law enforcement analyst ORAL CAVITY: mucosa moist Consultation Request Notes Referral Date Referring Provider Referred Provider Not es 04/25/2025 Ismael Barba Catherine trigger finer please eval and treat
--- OUTSIDE RECORDS SUMMARY | 2025-05-06 04:00 | XMS_ITS ---
Author Organization Ismael Barba MD Address [address] [place] [phone] Care Team Providers Care Paper Mill Supervisor Name Role Phone Ismael Braba Primary Care Provider [phone] Results Component Value Reference Range Notes Blood Urea Nitrogen Reviewed date:05/06/2025 04:43:25 PM Interpretation: Performing Lab:[facility], [address] [place] [phone] Notes/Report: Blood Urea Nitrogen 19 9-16 mg/dL REASON FOR VISIT BUN Encounters Encounter Location Date Provider Diagnosis Ismael Barba MD [address] [place] [phone] 05/06/2025 Ismael Barba Trigger finger (acquired) M65.30 and Elevated BUN R79.9 Assessments Encounter Date Diagnosis (ICD Code) Assessment Notes Treatment Notes Treatment Clinical Notes Section Notes 05/06/2025 Trigger finger (acquired) (ICD-10 - M65.30) 05/06/2025 Elevated BUN (ICD-10 - R79.9) Plan Of Treatment Next Appt Details Provider Name:Ismael nagel, 05/16/2025 07:45:00 AM, [address], [address], [place], [phone], Provider Name:Ismael Ames ier, 04/24/2026 07:00:00 AM, [address], [address], [place], [phone], Provider Name:Ismael Ames ier, 05/01/2026 08:00:00 AM, [address], [address], [place], [place], [phone], Progress Notes * Zamzam BRITTON CDOB:1954 (70 yo F)Acc No.[id number]:05/06/2025 Progress Note Patient: Zamzam CAIN Provider: Stephenie Barba MD :1955 A ge:70 Y S ex:Female Date:05/06/2025 Address:[address] [place] [address], [place], [phone] Subjective: * Chief Complaints: * 1 . BUN. * Medical History: Objective: * Vitals: Assessment: * Assessment: 1. E levated BUN - R79.9 (Primary) 2 . 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 Plan: * Treatment: 2. T crane rigger finger (acquired) L AB: Blood Urea Nitrogen (Collection Date & Time - 05/06/2025 08:00 AM) * Procedure Codes: 3 6415 VENIPUNCT, ROUTINE* * * The named appointment provid er may or may not be the originator of this progress note, and it is not deemed complete until electronically signed by the appointment provider. Sign off status: Pending * Provider: Stephenie Barba MD Date: 05/06/2025 Generated for Tripp ash/Christiano/Jenniferitting on: 05/06/2025 05:44 PM EDT
[2025-05-06 13:33] LABS: Blood Urea Nitrogen 19 mg/dL (9-16)
--- OUTSIDE RECORDS SUMMARY | 2025-05-06 17:44 | XMS_ITS | Clinical Summary ---
Author Organization [address] [facility] Address [address] [place] [address] Phone Care Team Providers Care Professional Model Name Role Phone Ismael Barba MD Primary [...] 2) 01/24/2006 Colorectal Cancer Screening: Colonoscopy 09/25/2023 Falls Risk Assessment 09/25/2023 Hepatitis C Screening 09/25/2023 Medicare Annual Wellness Visit 09/25/2023 Osteoporosis Screening (Bone Density Screening) 09/25/2023 Social Influencers of Health Screening 09/25/2023 Depression Screening 08/22/2024 COVID-19 Vaccine (1 - 2023-2 5 season) 2025 Influenza Vaccine (#1) 2025 RSV Immunization Adult [...] this topic Medical Devices Implanted Type Area Power Truck Driver Device Identifier Shelf Expiration Date Model / Serial / Lot Tritanium Cluster Hole Shell 50mm [facility] [id number] Implanted:Qty: 1 on 05/19/2023 by Fady Pool MD Left: Hip [employer] [id number] 02/11/2028 702-04-50D / / [id number] Lp Hex Screw 6.5x25mm Stry-Howm [id number] 58 Implanted:Qty: 1 on 05/19/2023 by Fady Pool MD Left: Hip [employer] [id number] 12/05/2027 5005-6338 / / U6WH Lp Hex Screw 6.5x25mm Stry-Howm [id number] 58 Implanted:Qty: 1 on 05/19/2023 by Fady Pool MD Left: Hip [employer] [id number] 12/05/2027 1558-0355 / / U6WH Liner Trident X3 0 Deg 36mm 3.9mm Sz D Stry-Howm [id number] Implanted:Qty: 1 on 05/19/2023 by Fady Pool MD Left: Hip [employer] [id number] 03/19/2028 723-00-36D / / [id number] Lp Hex Screw 6.5x15mm Stry-Howm [id number] 77 Implanted:Qty: 1 on 05/19/2023 by Fady Pool MD Left: Hip [employer] [id number] 12/01/2027 8640-8028 / / U6LE Hip Head Delta Susanna 36mm 0 Stry-Howm [id number] Implanted:Qty: 1 on 05/19/2023 by Fady Pool MD Left: Hip [employer] [id number] 02/09/2028 6570-0-136 / / [id number] Biofit Collared Prim #6 Smn-Orth [id number] Implanted:Qty: 1 on 05/19/2023 by Fady Pool MD [employer] [id number] / / Insurance AETNA MEDICARE ADVANTAGE Care Teams Professional Model Relationship Specialty Start Date End Date Ismael Barba MD PCP - General Internal Medicine 07/31/18
--- OUTSIDE RECORDS SUMMARY | 2025-05-06 17:44 | XMS_ITS | Patient Health Record ---
Author Organization [facility] [place] Address [address] [facility] [place] [address] Care Team Providers Care Editorial Cartoonist Name Role Phone Freda HERRERA, Ismael Primary Care Provider Dylan Calderón Unavailable [phone] Allergies Allergen (clinical drug ingredient) Drug/Non Drug [...] Status Risk Notes Problem Acquired hallux valgus (81503024) Hallux valgus (acquired), right foot (M20.11) Active confirmed Problem Acquired hammer toe of right foot (9813497557545 105) Other hammer toe(s) (acquired), right foot (M20.41) Active confirmed Problem Acquired hammer toe of left foot (3287113383010 103) Other hammer toe(s) (acquired), left foot (M20.42) Active confirmed Plan Of Treatment Pending Test Test Name Order Date X ray : Foot, left 2V 08/30/2012 X ray : Foot, left 2V 03/31/2018 X ray : Foot, right 2V 03/31/2018 [id number] TENDON SHEATH/LIGAMENT 0 09/01/201272929,[id number] TENDON SHEATH/LIGAMENT 0 09/26/2012,[id number] TENDON SHEATH/LIGAMENT 0 10/24/2012 Insurance Providers Payer Name Payer Address Payer Phone Subscriber Number Group Number Insured Name Patient Relationship to Insured Coverage Start Date Coverage End Date [facility] [address] [place] [address] [id number] Zamzam Haney Self - patient is the insured Medical (General) History Medical History History ICD Code joint implants/screws measles chicken pox Anxiety Arthritis Depression Bursitis Plantar Fasciitis Myositis Pain in Limb Surgical History Surgery Date(Month/Year) appendectomy varicose vein stripping rotator cuff tear repair 10/2012 L4-5, L5-S1 Spondylosis 07/05/15
--- OUTSIDE RECORDS SUMMARY | 2025-05-06 17:45 | XMS_ITS | Clinical Summary ---
Author Organization [facility] Address [address] [place] [address] Care Team Providers Care Funeral Home Director Name Role Phone Ismael Barba MD Primary [...] this topic Medical Devices Implanted Type Area Bin Operator Device Identifier Shelf Expiration Date Model / Serial / Lot Tritanium Cluster Hole Shell 50mm Stry-Howm [id number] 452 - [id number] Implanted:Qty: 1 on 05/19/2023 by Fady Pool MD at [facility] [place] and [facility] Left: Hip [employer] [id number] 02/11/2028 702-04-50D / / [id number] Lp Hex Screw 6.5x25mm Stry-Howm [id number] 58 - [id number] Implanted:Qty: 1 on 05/19/2023 by Fady Pool MD at [facility] [place] and Med Left: Hip [employer] [id number] 12/05/2027 6597-8377 / / U6WH Lp Hex Screw 6.5x25mm Stry-Howm 2580-2104-5317 58 - [id number] Implanted:Qty: 1 on 05/19/2023 by Fady Pool MD at [facility] [place] and [facility] Left: Hip [employer] [id number] 12/05/2027 6653-2253 / / U6WH Liner Trident X3 0 Deg 36mm 3.9mm Sz D Stry-Howm [id number] 660 - [id number] Implanted:Qty: 1 on 05/19/2023 by Fady Pool MD at [facility] [place] [facility] Left: Hip [employer] [id number] 03/19/2028 723-00-36D / / [id number] Lp Hex Screw 6.5x15mm Stry-How [id number] 77 - [id number] Implanted:Qty: 1 on 05/19/2023 by Fady Pool MD at [facility] [place] [facility] Left: Hip [employer] [id number] 12/01/2027 8761-6830 / / U6LE Hip Head Delta Susanna 36mm 0 Stry-How [id number] 812 - [id number] Implanted:Qty: 1 on 05/19/2023 by Fady Pool MD at [facility] [place] [facility] Left: Hip [employer] [id number] 02/09/2028 6570-0-136 / / [id number] Bio[employer] Collared Prim #6 Smn-Orth [id number] - [id number] Implanted:Qty: 1 on 05/19/2023 by Fady Pool MD at [facility] [place] [facility] [employer] [id number] / / Advance Directives For more information, please contact: [phone] Latest Code Status on File Code Status [...] way: discussion with patient . Care Teams Funeral Home Director Relationship Specialty Start Date End Date Ismael Barba MD [address] [place] [address] [place] [phone] PCP - General Internal Medicine 07/31/18
--- OUTSIDE RECORDS SUMMARY | 2025-05-06 17:45 | XMS_ITS | Patient Health Record ---
Author Organization [facility] Address [address] [place] [address] Care Team Providers Care Oriental Rug Stretcher Name Role Phone Freda HERRERA, Ismael Primary Care Provider Pranay Limon Unavailable [phone] Allergies Allergen (clinical drug ingredient) Drug/Non Drug [...] Problem Status W/U Status Risk Notes Problem 510848240 Encounter for screening for malignant neoplasm of colon (Z12.11) Active confirmed Problem 470171190 History of adenomatous polyp of colon (Z86.010) Active confirmed Problem 055618243 USP (current) use of non-steroidal anti-inflammatori es (NSAID) (Z79.1) Active confirmed Problem Screening for malignant neoplasm of rectum (601829214) Encounter for screening for malignant neoplasm of rectum (Z12.12) Active confirmed Problem 93963101 Preprocedural examination (Z01.818) Active confirmed Problem Diverticular disease of colon (756407876) 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) Active confirmed Plan Of Treatment Pending Test Test Name Order Date Pathology 04/10/2021 Future Test Test Name Order Date COLONOSCOPY 12/23/2015 COLONOSCOPY 02/24/2021 Insurance Providers Payer Name Payer Address Payer Phone Subscriber Number Group Number Insured Name Patient Relationship to Insured Coverage Start Date Coverage End Date [facility] [address] [place], [place] [phone] [id number] POINDEXT ER, TYLOR Self - patient is the insured [employer] [address] [place] [address] [id number] POINDEXT ER, TYLOR Self - patient is the insured Medical (General) History Medical History History ICD Code Psoriasis Denies DE,DM,CVA,Lung disease,renal dise ase Negative colonoscopy with Dr. Peter at [facility] approx 2001 Urinary incontinence--s/p interstim with good relief Colonoscopy 04/2016 with a small tubular adenoma removed HTN Arthritis Surgical History Surgery Date(Month/Year) Back surgery for sciatica---L4/L5-Dr. Tereso metz 06/25/[address] [facility] C-spine surgery with Dr. Tod Rivers for bladder control--Dr. Xavier weldon
--- OUTSIDE RECORDS SUMMARY | 2025-05-06 17:45 | XMS_ITS | Patient Health Record ---
Author Organization Ismael Barba MD Address [address] [place], [place] [id number] Care Team Providers Care Electronic Technician Name Role Phone Ismael Barba Primary Care Provider Allergies Allergen (clinical drug ingredient) Drug/Non Drug Allergy documented on EMR Reaction Allergy Type Onset Date Status oxycodone oxycodone (uncoded) itch Allergy Active amlodipine Amlodipine (uncoded) rash Allergy Active penicillin (uncoded) hives Allergy Active Results Component Value Reference Range Notes Complete Blood Count Auto Di ff Reviewed date:03/01/2025 12:55:24 PM Interpretation: Performing Lab:[facility], [address] [place] [phone] Notes/Report: White Blood Count 7.4 4.8-10.8 X10*3/uL [...] NRBC Abs Auto 0.000 0.0-0.012 X10*3/uL Comprehensive [place]. Panel Fa st Reviewed date:04/25/2025 02:35:20 PM Interpretation:04-25-25 Performing Lab:[facility], [address] [place] [phone] Notes/Report: Sodium 140 135-145 mmol/L Potassium 4.5 [...] Panel Reviewed date:03/01/2025 12:44:28 PM Interpretation: Performing Lab:[address] [address] Notes/Report: Triglycerides 78 <150 mg/dL Desirable Triglyceride: [...] t Reviewed date:03/01/2025 12:55:48 PM Interpretation: Performing Lab:[address] [address] Notes/Report: [id number] Urine, Clean Catch Color Urine Yellow Appearance Urine Cloudy PH 5.0 5.0-9.0 Glucose Urine UA Negative Negative mg/dL Urine Blood Negative Negative Specific [place] - Urine 1.025 1.005-1.025 Urine Protein Negative Neg-Trace mg/dL Urine Ketones Trace Negative mg/dL Nitrite Urine Negative Negative Leukocyte Esterase Urine Small (1+) Negative RBC Urine 0-2 0-2 /HPF WBC Urine 0-5 0-5 /HPF Squamous Epithelial Cell Urine 6-10 0-2 /HPF Other Crystals Urine Present TALC Bacteria Urine None Seen None Seen Hyaline Casts Urine 6-10 0-2 /LPF Blood Urea Nitrogen Reviewed date:05/06/2025 04:43:25 PM Interpretation: Performing Lab:[facility], [address] [place] [phone] Notes/Report: Blood Urea Nitrogen 19 9-16 mg/dL Urine Culture Reviewed date:03/02/2025 05:49:31 PM Interpretation: Performing Lab:[facility], [address] [place] [address] Notes/Report: Urine Culture Report Result Urine Culture > 100,000 cfu/ml Urine Culture Mixed bacterial margo a characteristic of Urine Culture urogenital contamination. Reason For Referral Reason trigger finer plea se eval and treat Diagnosis 1 Trigger finger (acqu ired) (M65.30) Referral Organization Ismael Barba MD Referring Provider First Name Ismael Referring Provider Last Name Freda Referring Provider Speciality Internal M edicine Referred Provider Lluvia Headley Referred Provider Specialty Orthopedic S urgery General Notes Sofie Barrientos 0 04/25/2025 08:33:56 AM >referral info faxed Referral Priority Routine Medications Medication SIG (Take, Route, Frequency, Duration) [...] Vaccine Route Administration Date Status Comme nts Flu Vaccine IM Intramuscular 05/17/2011 Administered Flu Vaccine IM Intramuscular 08/13/2014 Administered Flu Vaccine Unknown 06/26/2015 Administered given at [facility] after back surgery. PPSV23 (Pnemovax) Unknown 06/26/2015 Administered given at [facility] after back surgery. Flu Vaccine IM Intramuscular 05/29/2016 Administered Waljulissa hooksns Shingles IM Intramuscular 08/19/2016 Administered pt was given the vaccine at [facility]. Fluarix Quadrivalent IM Intramuscular 05/16/2017 Administered Prevnar 13 IM Intramuscular 07/04/2017 Administered TDaP IM Intramuscular 01/09/2018 Administered pt was given the vaccine at [facility] Fluarix Quadrivalent IM Intramuscular 05/16/2018 Administered pt was given th e vaccine at [facility] in [place]. Fluarix Quadrivalent IM Intramuscular 04/24/2019 Administered Shingrix IM Intramuscular 05/22/2019 Administered Shingrix IM Intramuscular 09/11/2019 Administered Covid Vaccine Unknown 11/14/2020 Administered Pfizer Covid Vaccine Unknown 12/07/2020 Administered Pfizer PPSV23 (Pnemovax) IM Intramuscular 12/23/2020 Administered Influenza High Dose Unknown 05/04/2021 Administered [facility] SARS-COV-2 Moderna Unknown 06/19/2021 Administered [facility] Influenza High Dose Unknown 06/09/[address] [facility] SARS-COV-2 Moderna Unknown 06/09/2022 [facility]ered [facility] Influenza High Dose Unknown 04/08/2023 [facility] [facility] SARS-COV-2 Moderna 2022 Unknown 07/06/2023 Administered [facility] RSV Unknown 07/06/2023 Administered [facility] Influenza High Dose IM Intramuscular 04/25/2025 Administer ed Tetanus Unknown 01/09/2018 Pending Social History Tobacco Use: Social History Observation [...] Problem Status W/U Status Risk Notes Problem 344745409 Tubular adenoma (D36.9) Active confirmed Problem 15515116 Anxiety (F41.9) Active confirmed Problem 82227300 Lumbar disc disease (M51.9) Active confirmed Problem 78455774 Essential hypertension (I10) Active confirmed Problem 6078948 Psoriasis (L40.9) Active confirmed Problem 074552426 Mild intermittent asthma without complication (J45.20) Active confirmed Problem 30791434 Idiopathic peripheral neuropathy (G60.9) Active confirmed Problem Pure hypercholesterolemia (930207770) Elevated cholesterol (E78.00) Active confirmed Problem 15734410 Major depressive disorder with single episode, 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) Active confirmed Problem 146510915 BMI 30.0-30.9,adult (Z68.30) Active confirmed Problem 724129892 History of left hip replacement (Z96.642) Active confirmed Problem Body mass index 30+ - obesity (117283540) Body mass index (BMI) of 30.0-30.9 in adult (Z68.30) Active confirmed Problem 244582628 Other specified menopausal and postmenopausal disorder (N95.8) Active confirmed Vital Signs Blood pressure diastolic 66 mm Hg 04/25/2025 nancy ght is up 7 pounds since 09-06-24 Height 63.25 in 04/25/2025 weight is up 7 pounds since 09-06-24 Blood pressure systolic 124 mm Hg 04/25/2025 weig ht is up 7 pounds since 09-06-24 Weight 142 lbs 04/25/2025 weight is up 7 pounds since 09-06-24 BMI 24.95 kg/m2 04/25/2025 weight is up 7 pounds since 09-06-24 Encounters Encounter Location Date Provider Diagnosis Ismael Barba MD [address] [place] [id number] 03/01/2025 Ismael Barba Blood tests for routine general physical examination Z00.00 and Essential hypertension I10 Ismael Barba MD [address] [place] [address] Drive [address] [place] [id number] 05/06/2025 Ismael Barba Trigger finger (acquired) M65.30 and Elevated BUN R79.9 Ismael Barba MD [address] [place] [address] Drive [address] [place] [id number] 09/06/2024 Ismael Barba Essential hypertensi on I10 and Psoriasis L40.9 Ismael Barba MD [address] [place] [address] Drive [address] [place] [id number] 04/25/2025 Ismael Barba Trigger finger (acquired) M65.30 ; Annual physical exam Z00.00 ; Elevated BUN R79.9 ; Encounter for administration of vaccine Z23 ; Elevated cholesterol E78.00 ; Essential hypertension I10 and Depression screening Z13.31 Ismael Barba MD [address] [place] [address] Drive [address] [place], [place] [id number] 03/08/2025 Ismael Barba Assessments Encounter Date Diagnosis (ICD Code) Assessment Notes Treatment Notes Treatment Clinical Notes Section Notes 03/01/2025 Blood tests for routine general physical examination (ICD-10 - Z00.00) 05/06/2025 Trigger finger (acquired) (ICD-10 - M65.30) 05/06/2025 Elevated BUN (ICD-10 - R79.9) 09/06/2024 Essential hypertension (ICD-10 - I10) doing well on meds, will continue current regiment 09/06/2024 Psoriasis (ICD-10 - L40.9) waiting to get on new meds 04/25/2025 Trigger finger (acquired) (ICD-10 - M65.30) referral to hand surgeon z 04/25/2025 Annual physical exam (ICD-10 - Z00.00) labs reviewed and discussed with patient z 03/01/2025 Essential hypertension (ICD-10 - I10) 04/25/2025 Elevated BUN (ICD-10 - R79.9) will [...] Z13.31) negative screen z Plan Of Treatment Pending Test Test Name Order Date Electrocardiogram (EKG) 04/01/2016 Electrocardiogram (EKG) 04/15/2017 XR DEXA axial skeleton 06/22/2021 Future Test Test Name Order Date US breast RT complete 05/13/2021 Next Appt Details Provider Name:Ismael nagel, 05/16/2025 07:45:00 AM, [address] [place] [address], Suite [facility], [place], [place], [phone], Provider Name:Ismael nagel, 04/24/2026 07:00:00 AM, [address], [address], [place], [place], [phone], Provider Name:Ismael Ames ier, 05/01/2026 08:00:00 AM, [address], [address], [place], [phone], Insurance Providers Payer Name Payer Address Payer Phone Subscriber Number Group Number Insured Name Patient Relationship to Insured Coverage Start Date Coverage End Date [employer] [address] [place], [place] [id number] Poindext er, Zamzam Self - patient is the insured Medical (General) History Medical History History ICD Code goes to tailings man Colonoscopy 04/29/16 w/Dr. Chong ss tubular adenoma. due in 5 years (2020): 04/13/21 colonoscopy done, repeat 2025, Total Hysterectomy 12/1998 has ovaries Abnormality of left breast on screening mammogram R92.8 Abnormality of left breast on screening mammogram colonoscopy 04/11 repeat 5yr Surgical History Surgery Date(Month/Year) TVN retains ovaries 12/1998 Right Rotator Cuff Repair 11/2012 L4-L5 and L5-S1 decompressio n w/L5-S1 posterior lumbar interbody fusion; L5-S1 cage placement & L4-L5 posterolateral arthrodesis and L4-S1 posterior segmental fixation 06/2015 Phlebectomy (Dr. Neri Alvarenga) 05/2020
== END 2025-05-06 12:54 | disposition home or self-care (01) ==
LOC: HO.LNP 12:53
PROVIDERS: Visit Provider Internal Medicine
DX: M65.30 Trigger finger, unspecified finger (principal); R79.9 Abnormal finding of blood chemistry, unspecified
CPT/HCPCS: 84520